=== PATIENT | female | born 1955 | race Caucasian/White ===

== ENCOUNTER 2024-12-10 12:31 | Inpatient (IN) | payer MEDICARE, MEDICAID, SELFPAY ==
[2024-12-10 12:34] VITALS: PULSE 64; RESP 18; O2SAT 97; BMI 23.8
[2024-12-10 12:42] VITALS: BP 105/75; PULSE 66; RESP 14; O2SAT 95
--- NOTE | 2024-12-10 12:44 | XR_ITS ---
Examination: Wrist, left 3 views Technique: Wrist AP, oblique, lateral 3 views Date and time of exam: December 10, 2024 1329 hours INDICATIONS: Patient fell today with injury to left wrist, left wrist pain FINDINGS: Acute comminuted fractures distal radial metaphysis, mild dorsal angulation Nondisplaced fracture ulnar styloid tip Carpal bones intact Severe osteopenia IMPRESSION: Acute comminuted fractures distal radial metaphysis
--- NOTE | 2024-12-10 12:44 | XR_ITS ---
Examination: AP chest single view Technique one AP portable supine chest single view INDICATIONS: Patient fell today with into the chest, chest pain FINDINGS: Normal heart size No pneumothorax Calcified granulomas throughout the lungs Clavicles ribs appear intact, severe osteopenia Chronic osteoporotic compressions dorsal vertebral bodies IMPRESSION: No pneumothorax pulmonary contusion or hemothorax
--- NOTE | 2024-12-10 12:44 | XR_ITS ---
Examination:Left hip AP, lateral, AP pelvis 3 views Technique: Hip AP lateral, AP pelvis, 3 views Exam date and time:November 20, 2024 1336 hours INDICATIONS: Patient fell today with injury to the left hip, left hip pain FINDINGS: Acute nondisplaced fractures left sacral wing Acute nondisplaced fractures left inferior superior pubic rami Old healed left subcapital hip fracture No acute hip fractures. IMPRESSION: Acute nondisplaced fractures lumbosacral wing. Acute nondisplaced fractures left inferior superior pubic rami.
--- NOTE | 2024-12-10 12:44 | XR_ITS ---
Examination: CT brain head without contrast. 2-D sagittal coronal reconstructions Date and time of exam:December 10, 2024 1311 hours INDICATIONS: Patient fell today with a nuclear head, head pain CTDI: vol (mGy):47.1 DLP: (mGycm):972 Technique: Multiple CT axial sections of the brain have been obtained, 5 mm slice thickness. Contrast has not been administered. 2-D sagittal, coronal reconstructions have been obtained Low dose protocols were performed. One or more of the following dose reduction techniques were used; automated exposure control, adjustment of the mA and/or KV according to patient size, use of iterative reconstruction technique. Findings: No significant ventricular enlargement. 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 No mass effect or midline shift Basal cisterns are not remarkable. Fourth ventricle is midline. Cranial vault intact. Prominent chronic microvascular white matter change Impression: Negative for acute hemorrhage, mass effect or midline shift
--- NOTE | 2024-12-10 12:44 | XR_ITS ---
Examination: CT cervical spine without contrast 2-D sagittal reconstructions 2-D coronal reconstructions 3-D reconstructions. Exam date and time:December 10, 2024 1111 hours INDICATIONS: Ground-level fall today with injury to the neck, neck pain CTDI:vol (mGy) 8.41 DLP: (mGycm) 172 Technique: Multiple 2 mm axial sections of the cervical spine have been obtained. The coronal and sagittal reconstructions have been obtained. 3-D reconstructions have been obtained. Low dose protocols were performed. One or more of the following dose reduction techniques were used; automated exposure control, adjustment of the mA and/or KV according to patient size, use of iterative reconstruction technique. Findings: Axial sections demonstrate intact base of the skull. C1 exhibit satisfactory relationship to the odontoid. No acute cervical vertebral body fracture seen. Alignment posterior spinous processes satisfactory. Impression: No acute cervical fracture.
--- NOTE | 2024-12-10 12:54 | EKG_ITS ---
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
[2024-12-10] MEDS: RINGERS LACTATED 1000 ML 1,000 ML 999 ML IV (12:57)
--- NOTE | 2024-12-10 13:12 | XR_ITS ---
Examination: CT pelvis without intravenous contrast. 2-D sagittal and coronal reconstructions. Date and time of exam:December 10, 2024 1314 hours INDICATIONS: Patient fell today with injury to the pelvis and left hip, left hip pain CTDI: vol (mGy) :9.56 DLP: (mGycm) : 2074 Technique: Multiple 3 mm axial sections of the pelvis have been obtained with the 64 slice high resolution scanner. 2-D sagittal and coronal reconstructions. Low dose protocols were performed. One or more of the following dose reduction techniques were used; automated exposure control, adjustment of the mA and/or KV according to patient size, use of iterative reconstruction technique. Findings: Severe osteopenia Acute fractures left sacral wing, axial images 57 through 64 Acetabular regions intact Acute fractures left inferior pubic ramus, image 135 and left superior pubic ramus axial image 116, without significant displacement Old healed fracture left hip subcapital No acute fractures No pelvic hematoma Urinary bladder intact IMPRESSION: Acute nondisplaced fractures left second and third sacral wings, axial image 57 Acute fractures left superior and inferior pubic rami Hips intact
[2024-12-10 13:27] LABS: Basophils # (Auto) 0.2 Thou/mm3 (0.0-0.2); Basophils % (Auto) 1 % (0-2.5); Eosinophils # (Auto) 0.4 Thou/mm3 (0.0-0.5); Eosinophils % (Auto) 2 % (0-10); Hematocrit 36.3 % (36.0-46.0); Hemoglobin 12.4 g/dL (12.0-16.0); Immature Granulocytes % (Auto) 1 % (0-0); Immature Granulocytes Auto 0.15 Thou/mm3 (0.00-0.00); Lymphocytes # (Auto) 2.5 Thou/mm3 (1.0-4.8); Lymphocytes % (Auto) 13 % (10-50); Mean Corpuscular HGB Conc 34.2 g/dl (31.0-37.0); Mean Corpuscular Hemoglobin 30.2 pg (25.0-35.0); Mean Corpuscular Volume 89 fL (80-100); Monocytes # (Auto) 1.2 Thou/mm3 (0.0-0.8); Monocytes % (Auto) 6 % (0-12); Neutrophils % (Auto) 77 % (37-80); Nucleated Red Blood Cell % 0 /100 WBC (0); Platelet Count 322 Thou/mm3 (140-440); RDW Standard Deviation 43.2 fL (36.4-46.3); White Blood Count 19.4 Thou/mm3 (3.6-11.0)
[2024-12-10 13:41] LABS: Partial Thromboplastin Time 25.4 Seconds (22.0-36.0); Prothrombin Time 10.6 Seconds (9.0-12.2)
[2024-12-10 13:43] LABS: Alanine Aminotransferase 27 U/L (10-49); Albumin, Serum 4.3 gm/dL (3.4-4.8); Albumin/Globulin Ratio 1.7 (1.2-2.2); Alkaline Phosphatase 114 U/L (46-116); Anion Gap 10 (7-16); Aspartate Amino Transferase 27 U/L (0-34); BUN/Creatinine Ratio 24 Ratio (12-20); Bilirubin,Total 0.6 mg/dL (0.3-1.2); Blood Urea Nitrogen 26 mg/dL (9-23); Calcium 10.3 mg/dL (8.3-10.6); Calcium (Corrected) 10.3 mg/dL (8.5-10.1); Carbon Dioxide 24.4 mMol/L (20.0-31.0); Chloride 107 mMol/L (98-107); Creatinine (Component) 1.1 mg/dL (0.6-1.3); Estimated Creatinine Clearance 37.7 mL/min (>60); Globulin 2.5 gm/dL (2.3-3.5); Glucose 134 mg/dL (74-106); Osmolality,Calculated 287 (275-295); Potassium 3.9 mMol/L (3.4-5.1); Sodium 141 mMol/L (136-145); Total Protein 6.8 gm/dL (5.7-8.2); eGFR 54 See Note
[2024-12-10] MEDS: MORPHINE SULF INJ 10 MG/ML VIAL 2 MG IVP ×2 (14:12→21:45)
[2024-12-10] MEDS: ONDANSETRON INJ 2 MG/ML INJ 2 ML 4 MG IVP ×2 (14:12→21:29)
--- NOTE | 2024-12-10 14:26 | EDNOTE_ITS ---
ED General RME/HPI General Chief complaint: Fall Stated complaint: FALL WITH ARM INJURY Time Seen by Provider: 12/10/24 12:44 Arrival date/time: 12/10/24 12:31 CC: Left wrist and left hip pain left buttock pain HPI patient jumped away from a snake while closing a gate, causing her to fall backwards onto her left hip. Patient denies LOC or LOC. Patient is awake alert oriented nontoxic poor and EMS reports stable vital signs and route. Related Data Home Medications ?Medication ?Instructions ?Recorded ?Confirmed amlodipine 10 mg tablet 10 mg PO HS 04/07/20 1 Allergies Allergy/AdvReac Type Severity Reaction Status Date / Time Penicillins Allergy Severe Hives Verified 06/16/21 08:57 sulfamethoxazole Allergy Severe Hives Verified 06/16/21 08:57 trimethoprim Allergy Severe Hives Verified 06/16/21 08:57 Review of Systems Review of Systems Narrative Review of Systems: GEN: No fever, no chills, no weight loss EYES: No discharge, no visual changes, no pain HEENT: No ear pain, no congestion, no sore throat PULM: No shortness of breath, no cough, no congestion CV: No chest pain, no dyspnea on exertion, no palpitations GI: No nausea, no vomiting, no diarrhea, no pain, no constipation : No frequency, no urgency, no dysuria MUSC/SKEL: + joint pain, no back pain, + hip pain SKIN: No rash PSYCH: No hallucinations, no depression HEME/LYMPH: No easy bleeding or bruising tendencies NEURO: No weakness, no headache ED Exam Narrative Physical exam: [General: Thin but not emaciated, in moderate discomfort but not in any acute distress Head normocephalic, no step-offs hematomas no depressions lacerations abrasions bleeding from the scalp. HEENT: Eyes pupils are PERRLA EOMs are intact mouth pink dry membranes uvula is midline swallow symmetrical phonation is normal nose no rhinorrhea epistaxis. No step-off in the upper or lower mandible with palpation. Within acceptable limits Neck is supple nontender no tenderness with palpation of the cervical spinous processes, no paraspinal tenderness with palpation full range of motion flexion extension rotation Chest equal chest rise nontender to palpation Respiratory: Clear to auscultation no wheezes crackles or rubs CV: Rate rhythm is regular no murmurs rubs or clicks Abdomen is flat, soft nontender no masses positive bowel sounds all 4 quadrants Back: No CVA tenderness no spinous process tenderness from cervical spine thoracic and lumbar spine Skin: 3 very small 1 to 2 mm partial-thickness abrasion sites to the lateral aspect of the left wrist. No through and through puncture wound no laceration. Otherwise skin is intact no petechiae rash induration ulceration or crepitus Extremities: Minimal range of motion of the left leg secondary to hip pain cap refill in the digits less than 2 seconds. Significant decreased range of motion in the left hand secondary to obvious deformity in the left wrist. Cap refill at these digits less than 2 seconds. Moving right leg and right upper extremity without complication full range of motion 5/5 strength. Neuro: Awake alert oriented x3 Glascow coma 15 no focal deficits cranial nerves II through XII are grossly intact.] Course Course Course Narrative: Patient has had multiple doses of pain medication to maintain her pain while lying supine in the bed. This time I feel the patient needs to be admitted for intractable pain secondary to pelvic ramus fracture coccyx fracture and wrist fracture. Patient's case discussed with Dr. Owens, who is requesting orthopedic consult for admission. As we have no orthopedic consult available, discussed the case with Dr.'s boyce said that these pelvic ramus and sacral fractures are nonoperative and the patient can be managed for pain before being discharged either home or to a SNF. The risk can be assessed on an outpatient basis with Ortho. Dr. Walsh is on tomorrow for orthopedic consult. Again we discussed this with Dr. Khoury, who agrees to accept the patient for admission for intractable hip pain. Quality Measures none Orders Category Date Time Status EKG (ED ONLY) *Do not use* NOW Care 12/10/24 12:54 Completed Saline [Insert IV] NOW Care 12/10/24 12:46 Active Splint / Immobilizer STAT Care 12/10/24 14:[address] cervical spine wo con Stat Exams 12/10/24 12:[address] head/brain wo con Stat Exams 12/10/24 12:[address] pelvis wo con Stat Exams 12/10/24 13:12 Completed EKG (ED Only) Stat Exams 12/10/24 12:54 Draft XR chest 1V Stat Exams 12/10/24 12:44 Completed XR hip LT w pelvis 2-3V Stat Exams 12/10/24 12:44 Completed XR wrist LT 2V Stat Exams 12/10/24 12:44 Completed CBC Stat Lab 12/10/24 13:06 Completed CMP [Comprehensive Metabolic Panel] Stat Lab 12/10/24 13:06 Completed PT [Prothrombin Time with INR] Stat Lab 12/10/24 13:06 Completed PTT [Partial Thromboplastin Time] Stat Lab 12/10/24 13:06 Completed Urinalysis, C/S if Indicated Stat Lab 12/10/24 15:25 Ordered Morphine Inj Med 12/10/24 12:46 Discontinued 2 mg IVP X1 ONE Morphine Inj Med 12/10/24 14:25 Discontinued 4 mg IVP X1 ONE Ondansetron Inj [Zofran Inj] Med 12/10/24 12:46 Discontinued 4 mg IVP X1 ONE Ringers Lactated 1000 ml [Lactated Ringers] 1,000 ml Med 12/10/24 12:46 Discontinued IV 999 mls/hr ceFAZolin/D5W 1 GM IVPB [Ancef Ivpb] Med 12/10/24 14:43 Discontinued 1 gm in 50 ml IV X1 oxyCODONE/APAP 5/325 [Percocet 5/325] Med 12/10/24 15:15 Discontinued 1 tab PO X1 ONE Vital Signs Vital signs: Vital Signs Pulse Rate 66 12/10/24 12:42 Respiratory Rate 14 12/10/24 12:42 Blood Pressure 105/75 12/10/24 12:42 Pulse Oximetry (%) 95 12/10/24 12:42 Oxygen Delivery Method Room Air 12/10/24 12:42 Discharge Plan Plan Patient Disposition: Other Care w/in Hosp ([facility]) Patient condition on transfer: Stable Prescriptions/Referrals Prescriptions/Med Rec: No Action amlodipine 10 mg Tablet 10 mg PO HS Referrals: Gibran Oliveira MD [Primary Care Provider] - In 1 week Problem List Clinical Impression: Closed fracture of inferior pubic ramus, Fracture of wrist, Closed fracture of superior ramus of left pubis, Closed sacral fracture, Acute hip pain Patient/Caregiver Discharge Instructions Print Language: Stateless Stand Alone Forms: Radha Award Info., Patient Portal Info Letter PA/EMPLOYMENT AND CLAIMS AIDE Supervising Physician PA/EMPLOYMENT AND CLAIMS AIDE Supervising Physician: Hernan Prieto ENP [facility] Clinical Information Provided by patient and EMS Medical Records [facility] Meds/Rx Considered, not Ordered None Labs/Rad/Tests considered, not Ordered None Chronic Illness/Social Conditions Add or document further as needed: Hypertension EKG EKG not done Lab Interpretation Labs: interpreted by me Lab(s) interpretation(s): CBC shows a 19.4 leukocytosis, no anemia thrombocytopenia Coags within acceptable limits CMP shows no significant electrolyte imbalances BUN of 24 creatinine of 1.1. No transaminitis or T. bili elevation Imaging Imaging interpretation: interpreted by me Provider imaging interpretation(s): CT of head and neck as interpreted by me read by radiology is negative for any acute finding requires emergent need intervention Chest x-ray is negative as interpreted by me for any acute finding requires emergent immune intervention. A CT of the hip pelvis shows inferior and superior ramus fracture nondisplaced along with coccyx wing fractures. Pelvic x-ray shows superior inferior ramus fracture Radiology reports / interpretation(s): At 1430 patient advised of the findings, discussed with her, her , and she is making decision as what she wants to do. The patient's fractures in the coccyx and pelvis are nonoperative. However patient has had considerable pain is required several doses of pain medication to mediate the pain while laying still. Left wrist will be immobilized in a wrist splint to follow-up on outpatient basis after the swelling goes down. Medication Administration(s) Medication Administration History Discontinued Medications Lactated Ringer's (Lactated Ringers) 1,000 mls @ 999 mls/hr IV .Q1H1M ONE Stop: 12/10/24 13:46 Last Infusion: 12/10/24 13:58 Dose: Infused Documented By: Admin: 12/10/24 12:57 Dose: 999 mls/hr Documented By: EF Cefazolin Sodium/Dextrose (Ancef Ivpb) 1 gm in 50 mls @ 100 mls/hr IV X1 ONE Stop: 12/10/24 15:12 Last Infusion: 12/10/24 15:59 Dose: Infused Documented By: Admin: 12/10/24 15:29 Dose: 100 mls/hr Documented By: EF Morphine Sulfate (Morphine Sulf Inj 10 Mg/Ml Vial) 2 mg IVP X1 ONE Stop: 12/10/24 12:47 Last Admin: 12/10/24 14:12 Dose: 2 mg Documented By: EF Morphine Sulfate (Morphine Sulf Inj 10 Mg/Ml Vial) 4 mg IVP X1 ONE Stop: 12/10/24 14:26 Last Admin: 12/10/24 15:27 Dose: 4 mg Documented By: EF Ondansetron HCl (Ondansetron Inj 2 Mg/Ml Inj 2 Ml) 4 mg IVP X1 ONE; Protocol Stop: 12/10/24 12:47 Last Admin: 12/10/24 14:12 Dose: 4 mg Documented By: EF Oxycodone/Acetaminophen (Oxycodone/Apap 5/325 Tablet) 1 tab PO X1 ONE Stop: 12/10/24 15:16
[2024-12-10 15:21] VITALS: BP 134/81; PULSE 57; RESP 15; O2SAT 95
[2024-12-10] MEDS: MORPHINE SULF INJ 10 MG/ML VIAL 4 MG IVP (15:27)
[2024-12-10] MEDS: ceFAZolin/D5W 1 GM IVPB 1 GM/50 ML BAG IV (15:29)
--- NOTE | 2024-12-10 16:23 | PC.NURSE ---
DR. DEMETRIA JORDAN, DR. IBRAHIM, & DR. FABIAN KASPER AT BEDSIDE ASSESSING PT.
[2024-12-10] MEDS: oxyCODONE/APAP 5/325 TABLET 1 TAB PO (16:25)
[2024-12-10 16:36] LABS: Collection Type, Urine Clean Catch; Squamous Epithelial Cell,Urine 0 /hpf (0-5)
[2024-12-10 16:39] VITALS: BP 130/82; PULSE 67; RESP 20; TEMP 36.6; O2SAT 96
[2024-12-10 16:48] LABS: Bilirubin,Urine Negative (Negative); Blood,Urine Negative (Negative); Clarity,Urine Clear (Clear/Hazy); Color,Urine Lt-Yellow (Lt Yel-Yel); Culture Indicated,Urine Not Indicated; Glucose, Urine Negative (Negative); Ketones,Urine Negative (Negative); Leukocyte Esterase,Urine Negative (Negative); Nitrite,Urine Negative (Negative); PH,Urine 7.5 (5.0-7.0); Protein,Urine Negative (Neg - Trace); RBC,Urine 1 /hpf (0-3); Specific Gravity,Urine 1.012 (1.001-1.035); Urobilinogen,Urine Negative mg/dL (0.0-1.0); WBC,Urine < 1 /hpf (0-5)
--- NOTE | 2024-12-10 16:50 | PD.RESHP ---
Documentation for date of: 12/10/24 HPI History of Present Illness History of present illness: Aminta Ogden is a 69-year-old female with a past medical history of osteopenia, history of left-sided hip fracture in 2019 status post ORIF, hypertension, hyperlipidemia who presents on 12/10 after mechanical ground-level fall. 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 Afterwards she experienced immediate pain but did not have her cell phone and had to walk a certain distance and even climb over a fence in order to get to her car and phone to call for help. Upon arrival to the ED, CT cervical spine negative, CT head negative, CXR negative. However, CT pelvis showed an acute nondisplaced fracture of the left 2nd and 3rd sacral wings, acute fracture of the left superior inferior pubic rami, hips intact. Wrist x-ray showed acute comminuted fracture of the distal radial metaphysis. ED provider spoke with Dr. Chaudhry regarding case and stated that fractures are nonoperable and can be managed with pain and be discharged to home with home health or SNF. Otherwise, vital signs stable. Labs showed leukocytosis of 19.4 (likely reactive secondary to fracture), normal coag panel, and mildly elevated calcium at 10.3. Patient received 1 L LR bolus, 2 mg IV morphine x 1, 4 mg IV morphine x 1, and 1 tablet of Percocet. PMHx: Osteopenia, left-sided hip fracture in 2020, hyperlipidemia, hypertension Medications: Amlodipine, aspirin, atorvastatin Allergies: penicillins, sulfa drugs SHx: smoked 5 cigarettes/day for 30 years (stopped 7 years ago), remote history of alcohol and illicit drug use PSHx: left-hip ORIF 2019 Review of Systems Review of Systems Systems Reviewed: All systems reviewed, normal except as documented Exam Vital Signs Temp Pulse Resp BP Pulse Ox O2 Del Method 97.9 F 67 20 130/82 96 Room Air 12/10/24 16:39 12/10/24 16:39 12/10/24 16:39 12/10/24 16:39 12/10/24 16:39 12/10/24 16:39 Narrative Exam General: AOx3, moderate discomfort from pain, able to speak full sentences HEENT: NC/AT, mucous membranes moist, bilateral sclera anicteric Cardiovascular: regular rate and rhythm, S1/S2 present, no murmurs appreciated Pulmonary: clear to auscultation bilaterally, no rales/rhonchi/wheezes Abdominal: soft, non-tender, non-distended, no rebound/guarding, normal bowel sounds present Musculoskeletal: LUE in sling, LLE with limited range of motion, no peripheral edema Skin: no bruising noted, warm and dry, intact, no rashes Neuro: CN II-XII intact, no focal deficits Results: Labs 12/13/24 04:31 12/13/24 04:31 Labs: Short CBC 12/10/24 Range/Units 13:06 WBC 19.4 H (3.6-11.0) Thou/mm3 Hgb 12.4 (12.0-16.0) g/dL Hct 36.3 (36.0-46.0) % Plt Count 322 (140-440) Thou/mm3 BMP 12/10/24 13:06 Sodium 141 Potassium 3.9 Chloride 107 Carbon Dioxide 24.4 BUN 26 H Creatinine 1.1 Glucose 134 H Calcium 10.3 Liver Function 12/10/24 Range/Units 13:06 Total Bilirubin 0.6 (0.3-1.2) mg/dL AST 27 (0-34) U/L ALT 27 (10-49) U/L Alkaline Phosphatase 114 (46-116) U/L Albumin 4.3 (3.4-4.8) gm/dL Quality Measures Quality Measures none Advance care planning discussed with:: patient and child Medications Home Medications and Allergies Home Medications ?Medication ?Instructions ?Recorded ?Confirmed ?Type amlodipine 10 mg tablet 10 mg PO HS 04/07/20 12/10/24 History aspirin 81 mg chewable tablet 81 mg PO DAILY 12/10/24 12/10/24 History atorvastatin 40 mg tablet 40 mg PO .COMPLEX 12/10/24 12/10/24 History Allergies Allergy/AdvReac Type Severity Reaction Status Date / Time Penicillins Allergy Severe Hives Verified 06/16/21 08:57 sulfamethoxazole Allergy Severe Hives Verified 06/16/21 08:57 trimethoprim Allergy Severe Hives Verified 06/16/21 08:57 Visit Medications Acetaminophen (Acetaminophen 325 Mg Tablet) 650 mg PO Q6H PRN PRN Reason: PAIN OR FEVER > 100.4 Stop: 01/09/25 16:37 Hydrocodone Bitart/Acetaminophen (Hydrocodone/Apap 5/325 Tablet) 1 tab PO Q6HR PRN PRN Reason: PAIN SCALE 4-6 (Moderate Stop: 12/15/24 16:37 Amlodipine Besylate (Amlodipine Besylate 5 Mg Tablet) 10 mg PO HS CLIFF Stop: 01/10/25 08:59 Aspirin (Aspirin 81 Mg Chew) 81 mg PO DAILY CLIFF Stop: 01/10/25 08:59 Atorvastatin Calcium (Atorvastatin Calcium 20 Mg Tablet) 40 mg PO HS CLIFF Stop: 01/09/25 20:59 Enoxaparin Sodium (Enoxaparin Sod Inj 40 Mg/0.4 Ml Syringe) 40 mg SC QDAY CLIFF Stop: 12/25/24 08:59 Hydromorphone HCl (Hydromorphone Inj 2 Mg/Ml Vial) 0.5 mg IVP Q6H PRN PRN Reason: PAIN SCALE 7-10 (Severe Stop: 12/15/24 16:37 Ondansetron HCl (Ondansetron Inj 2 Mg/Ml Inj 2 Ml) 4 mg IVP Q6H PRN; Protocol PRN Reason: NAUSEA OR VOMITING Stop: 01/09/25 16:37 Discontinued Medications Lactated Ringer's (Lactated Ringers) 1,000 mls @ 999 mls/hr IV .Q1H1M ONE Stop: 12/10/24 13:46 Last Infusion: 12/10/24 13:58 Dose: Infused Cefazolin Sodium/Dextrose (Ancef Ivpb) 1 gm in 50 mls @ 100 mls/hr IV X1 ONE Stop: 12/10/24 15:12 Last Infusion: 12/10/24 15:59 Dose: Infused Morphine Sulfate (Morphine Sulf Inj 10 Mg/Ml Vial) 2 mg IVP X1 ONE Stop: 12/10/24 12:47 Last Admin: 12/10/24 14:12 Dose: 2 mg Morphine Sulfate (Morphine Sulf Inj 10 Mg/Ml Vial) 4 mg IVP X1 ONE Stop: 12/10/24 14:26 Last Admin: 12/10/24 15:27 Dose: 4 mg Ondansetron HCl (Ondansetron Inj 2 Mg/Ml Inj 2 Ml) 4 mg IVP X1 ONE; Protocol Stop: 12/10/24 12:47 Last Admin: 12/10/24 14:12 Dose: 4 mg Oxycodone/Acetaminophen (Oxycodone/Apap 5/325 Tablet) 1 tab PO X1 ONE Stop: 12/10/24 15:16 Last Admin: 12/10/24 16:25 Dose: 1 tab Assessment & Plan Plan Aminta Ogden is a 69-year-old female with a past medical history of osteopenia, history of left-sided hip fracture in 2020 status post ORIF, hypertension, hyperlipidemia who is admitted for management of acute left hip fracture. #Acute left hip-fracture #Acute left wrist fractrue #History of severe osteopenia #History of left-sided hip fracture status post ORIF in 2020 Presents with mechanical ground-level fall and denies LOC with CT head and neck negative. CT pelvis showed an acute nondisplaced fracture of the left 2nd and 3rd sacral wings, acute fracture of the left superior inferior pubic rami, hips intact. Wrist x-ray showed acute comminuted fracture of the distal radial metaphysis. ED provider spoke with Dr. Chaudhry regarding case and stated that fractures are nonoperable and can be managed with pain and be discharged to home with home health or SNF. ? Pain management: [place], Dilaudid (patient endorsed nausea with morphine) ? PT evaluation #Hypertension ? Amlodipine 10 mg nightly #Hyperlipidemia ? Atorvastatin 40 mg p.o. at bedtime Hospital management: Disposition: pending PT evaluation for SNF vs home health with PT Diet: regular Lines: PIV DVT prophylaxis: enoxaparin 40 mg SC daily CODE STATUS: full code ----- Plan discussed with attending physician Dr. Graciela Johnston MD PGY-1 Internal Medicine Attending Provider Attestation/Addendum I attest that I was physically present for the evaluation, physical examination, lab and imaging review of the patient with the residents. I discussed the case with the residents and agree with the findings and plans of care as documented above. After examination of the patient and review of the clinical data I feel that this patient needs admission to the hospital for further treatment/evaluation. Trip Owens MD
[2024-12-10 19:20] VITALS: BMI 25.4
[2024-12-10 20:00] VITALS: BP 137/78; PULSE 68; RESP 17; TEMP 36.4; O2SAT 97
[2024-12-10] MEDS: ATORVASTATIN CALCIUM 20 MG TABLET 40 MG PO (21:06)
[2024-12-11] VITALS (7 sets, daily range): BP systolic 100–144; BP diastolic 68–86; PULSE 66–96; RESP 18–19; TEMP 36.1–36.5; O2SAT 93–96; BMI 12.0
[2024-12-11] MEDS: MORPHINE SULF INJ 10 MG/ML VIAL 2 MG IVP (05:18)
[2024-12-11 06:33] LABS: Anion Gap 9 (7-16); BUN/Creatinine Ratio 19 Ratio (12-20); Blood Urea Nitrogen 19 mg/dL (9-23); Calcium 9.9 mg/dL (8.3-10.6); Carbon Dioxide 27.9 mMol/L (20.0-31.0); Chloride 102 mMol/L (98-107); Estimated Creatinine Clearance 42.7 mL/min (>60); Glucose 107 mg/dL (74-106); Magnesium 2.1 mg/dL (1.6-2.6); Osmolality,Calculated 279 (275-295); Phosphorous 3.3 mg/dL (2.4-5.1); Potassium 4.1 mMol/L (3.4-5.1); Sodium 139 mMol/L (136-145); Thyroid Stimulating Hormone 3.11 uIU/mL (0.55-4.78); eGFR > 60 See Note
[2024-12-11 06:48] LABS: Cardiac Risk Estimate 2.8 RATIO (3.7-5.6); Cholesterol 160 mg/dL (132-200); HDL Cholesterol 58 mg/dL (40-60); LDL Cholesterol,Calculated 79 mg/dL (0-130); Triglycerides 117 mg/dL (30-150)
[2024-12-11 07:49] LABS: Basophils # (Auto) 0.1 Thou/mm3 (0.0-0.2); Basophils % (Auto) 1 % (0-2.5); Eosinophils # (Auto) 0.3 Thou/mm3 (0.0-0.5); Eosinophils % (Auto) 4 % (0-10); Hematocrit 35.9 % (36.0-46.0); Hemoglobin 12.4 g/dL (12.0-16.0); Immature Granulocytes % (Auto) 0 % (0-0); Immature Granulocytes Auto 0.03 Thou/mm3 (0.00-0.00); Lymphocytes # (Auto) 1.8 Thou/mm3 (1.0-4.8); Lymphocytes % (Auto) 21 % (10-50); Mean Corpuscular HGB Conc 34.5 g/dl (31.0-37.0); Mean Corpuscular Hemoglobin 30.7 pg (25.0-35.0); Mean Corpuscular Volume 89 fL (80-100); Monocytes # (Auto) 0.8 Thou/mm3 (0.0-0.8); Monocytes % (Auto) 10 % (0-12); Neutrophils # (Auto) 5.4 Thou/mm3 (1.8-7.7); Neutrophils % (Auto) 64 % (37-80); Nucleated Red Blood Cell % 0 /100 WBC (0); Platelet Count 263 Thou/mm3 (140-440); RDW Standard Deviation 43.3 fL (36.4-46.3); Red Blood Count 4.04 Miln/mm3 (4.00-5.20); White Blood Count 8.5 Thou/mm3 (3.6-11.0)
[2024-12-11] MEDS: ENOXAPARIN SOD INJ 40 MG/0.4 ML SYRINGE SC (08:48)
[2024-12-11] MEDS: ASPIRIN 81 MG CHEW PO (08:50)
[2024-12-11] MEDS: ONDANSETRON INJ 2 MG/ML INJ 2 ML 4 MG IVP ×2 (08:50→15:15)
--- NOTE | 2024-12-11 09:06 | ESPR_ITS ---
<Statement entered by Gaby Tipton MD - 12/11/24 15:18> Overnight, no acute events reported. Patient seen and examined at bedside. Patient continues to have pain both her hip and wrist. Will continue with NSAIDs as patient's pain is alleviated. Orthopedics was consulted and recommended to continue weightbearing, and continue PT as tolerated. Patient will likely need outpatient hand surgery for distal radius fracture. Otherwise all labs unremarkable. Patient will likely need home with home health as patient is strongly against SNF at this time. I discussed with and supervised the intern architect physician who took care of this patient. I personally saw and examined the patient and discussed the assessment and plan with the entire medicine team, including my attending Dr. Cunningham, I agree with most of the assessment and plan as documented below Gaby Tipton M.D. PGY-2 Disclaimer: Despite multiple revisions, due to the dictation software being used, the document bellow may not be free of grammatical errors including phonetic/typographic errors. However, this does not deter from our commitment to providing health care in the patient's best interest in mind. Documentation for date of: 12/11/24 Subjective Subjective Interval history: No acute overnight events. Seen and examined at bedside and patient continues to endorse significant pain in both her wrist and hip with associated nausea. Patient states that both Dilaudid and morphine caused her to feel ill and has had ketorolac in the past that alleviated her symptoms. Thus, will start ketorolac for her pain and morphine for breakthrough with Zofran and PRN to help alleviate symptoms. Spoke to Ortho, Dr. Walsh, and at this time can continue weightbearing as tolerated in lower extremities and can continue treatment nonoperatively will trial ambulation and platform walker. For distal radius fracture, will likely need surgery but can do this as outpatient. Otherwise, vital signs stable, CBC unremarkable, CHEM panel unremarkable. Exam Vital Signs Temp Pulse Resp BP Pulse Ox O2 Del Method 97.6 F 77 18 126/73 93 L Room Air 12/11/24 04:00 12/11/24 04:00 12/11/24 04:00 12/11/24 04:00 12/11/24 04:00 12/11/24 04:00 Narrative Exam General: AOx3, moderate discomfort from pain, able to speak full sentences HEENT: NC/AT, mucous membranes moist, bilateral sclera anicteric Cardiovascular: regular rate and rhythm, S1/S2 present, no murmurs appreciated Pulmonary: clear to auscultation bilaterally, no rales/rhonchi/wheezes Abdominal: soft, non-tender, non-distended, no rebound/guarding, normal bowel sounds present Musculoskeletal: LUE in sling, LLE with limited range of motion, no peripheral edema Skin: no bruising noted, warm and dry, intact, no rashes Neuro: CN II-XII intact, no focal deficits Objective Labs 12/12/24 05:22 12/12/24 05:22 Labs: Laboratory Results - last 24 hr 12/10/24 12/10/24 12/11/24 13:06 16:13 04:51 WBC 19.4 H 8.5 D RBC 4.10 4.04 Hgb 12.4 12.4 Hct 36.3 35.9 L MCV 89 89 MCH 30.2 30.7 MCHC 34.2 34.5 RDW Std Deviation 43.2 43.3 Plt Count 322 263 D Neut % (Auto) 77 64 Lymph % (Auto) 13 21 Conway % (Auto) 6 10 Eos % (Auto) 2 4 Baso % (Auto) 1 1 Neut # (Auto) 15.0 H 5.4 Lymph # (Auto) 2.5 1.8 Conway # (Auto) 1.2 H 0.8 Eos # (Auto) 0.4 0.3 Baso # (Auto) 0.2 0.1 Immature Gran # (Auto) 0.15 H 0.03 H Absolute Nucleated RBC 0.00 0.00 Immature Gran % 1 H 0 Nucleated RBC % 0 0 PT 10.6 INR 1.0 APTT 25.4 Sodium 141 139 Potassium 3.9 4.1 Chloride 107 102 Carbon Dioxide 24.4 27.9 Anion Gap 10 9 BUN 26 H 19 Creatinine 1.1 1.0 Estim Creat Clear Calc 37.7 L 42.7 L eGFR 54 L > 60 BUN/Creatinine Ratio 24 H 19 Glucose 134 H 107 H Calculated Osmolality 287 279 Calcium 10.3 9.9 Corrected Calcium 10.3 H Phosphorus 3.3 Magnesium 2.1 Total Bilirubin 0.6 AST 27 ALT 27 Alkaline Phosphatase 114 Total Protein 6.8 Albumin 4.3 Globulin 2.5 Albumin/Globulin Ratio 1.7 Triglycerides 117 Cholesterol 160 LDL Cholesterol, Calc 79 HDL Cholesterol 58 Cholesterol/HDL Ratio 2.8 L TSH 3.11 Ur Collection Type Clean Catch Urine Color Lt-Yellow Urine Clarity Clear Urine pH 7.5 H Ur Specific Ramona 1.012 Urine Protein Negative Urine Glucose (UA) Negative Urine Ketones Negative Urine Blood Negative Urine Nitrite Negative Urine Bilirubin Negative Urine Urobilinogen (Auto) Negative Ur Leukocyte Esterase Negative Urine RBC 1 Urine WBC < 1 Ur Squamous Epith Cells 0 Urine Bacteria None Ur Culture Indicated? Not Indicated Quality Measures Quality Measures none Advance care planning discussed with:: patient and child Assessment & Plan Assessment Current Active Medications: Generic Name Dose Route Start Last Admin Trade Name Freq PRN Reason Stop Dose Admin Acetaminophen 650 mg 12/10/24 16:38 Acetaminophen 325 Mg Tablet PO 01/09/25 16:37 Q6H PRN PAIN OR FEVER > 100.4 Hydrocodone Bitart/Acetaminophen 1 tab 12/10/24 16:38 Hydrocodone/Apap 5/325 Tablet PO 12/15/24 16:37 Q6HR PRN PAIN SCALE 4-6 (Moderate Amlodipine Besylate 10 mg 12/11/24 09:00 12/11/24 08:50 Amlodipine Besylate 5 Mg Tablet PO 01/10/25 08:59 Not Given HS CLIFF Aspirin 81 mg 12/11/24 09:00 12/11/24 08:50 Aspirin 81 Mg Chew PO 01/10/25 08:59 81 mg DAILY CLIFF Administration Atorvastatin Calcium 40 mg 12/10/24 21:00 12/10/24 21:06 Atorvastatin Calcium 20 Mg Tablet PO 01/09/25 20:59 40 mg HS CLIFF Administration Enoxaparin Sodium 40 mg 12/11/24 09:00 12/11/24 08:48 Enoxaparin Sod Inj 40 Mg/0.4 Ml Syringe SC 12/25/24 08:59 40 mg QDAY CLIFF Administration Hydromorphone HCl 0.5 mg 12/10/24 16:38 Hydromorphone Inj 2 Mg/Ml Vial IVP 12/15/24 16:37 Q6H PRN PAIN SCALE 7-10 (Severe Morphine Sulfate 2 mg 12/10/24 21:28 12/11/24 05:18 Morphine Sulf Inj 10 Mg/Ml Vial IVP 12/15/24 21:27 2 mg Q4HR PRN Administration Pain 6-10 Ondansetron HCl 4 mg 12/10/24 16:38 05/27/25 08:50 Ondansetron Inj 2 Mg/Ml Inj 2 Ml IVP 01/09/25 16:37 4 mg Q6H PRN Administration NAUSEA OR VOMITING Protocol Plan Aminta Ogden is a 69-year-old female with a past medical history of osteopenia, history of left-sided hip fracture in 2020 status post ORIF, hypertension, hyperlipidemia who is admitted for management of acute left hip fracture. #Acute left superior pubic rami fracture #Acute left wrist fracture #History of severe osteopenia #History of left-sided hip fracture status post ORIF in 2020 Presents with mechanical ground-level fall and denies LOC with CT head and neck negative. CT pelvis showed an acute nondisplaced fracture of the left 2nd and 3rd sacral wings, acute fracture of the left superior inferior pubic rami, hips intact. Wrist x-ray showed acute comminuted fracture of the distal radial metaphysis. ED provider spoke with Dr. Chaudhry regarding case and stated that fractures are nonoperable and can be managed with pain and be discharged to home with home health or SNF. ? Orthopedics consulted, appreciate recommendations ? For hip fractures, can be treated nonoperatively, weightbearing as tolerated; trial of ambulation and will need platform walker given distal radius fracture ? For distal radius fracture, will likely need surgery -> will need platform walker, nonweightbearing, outpatient follow-up ? PT evaluation ? Pain management: ketorolac, morphine for breakthrough pain #Nausea ? Zofran ? Scopolamine patch x1 #Hypertension ? Amlodipine 10 mg nightly #Hyperlipidemia ? Atorvastatin 40 mg p.o. at bedtime Hospital management: Disposition: pending PT evaluation for SNF vs home health with PT Diet: regular Lines: PIV DVT prophylaxis: enoxaparin 40 mg SC daily CODE STATUS: full code ----- Plan discussed with attending physician Dr. Cunningham and senior resident physician Dr. Saeed Johnston MD PGY-1 Internal Medicine Attending Provider Attestation/Addendum 69-year-old female with hyperlipidemia and osteopenia with subsequent history of left hip ORIF back in 2019 who presented status post ground-level fall. In the ER, patient underwent extensive workup including CT pelvis which noted acute nondisplaced fracture of the left 2nd and 3rd sacral wing, acute fracture of the left superior inferior rami and left distal radial fracture. Patient subsequently admitted orthopedic service was consulted. Patient was evaluated by orthopedic team did not recommend any intervention for left sacral and ramus fractures. As for distal radial fracture, recommended outpatient referral to a hand specialist.I reviewed above note and agree with findings and plans. Plan was to discharge the patient however, continues to require IV opiates and physical therapy. Plan to initiate aggressive oral opiate regiment and prepare the patient for discharge in the next 24-48 hours. I have also personally examined the patient with medicine team and went over assessment and plan with medical team including intern architect and resident physician.
--- NOTE | 2024-12-11 10:04 | PC.SS ---
Patient Aminta Ogden is a 69 Year old female admitted for Hip Fracture. SS met with patient at bedside to discuss discharge plan and verify demographic information. Patient reports she lives at home alone in the same property as her sister. prior to admission patient did not utilize any source of DME to assist with ambulation. Patient is able to complete all ADL's independently. Surrogate decision maker is her daughter, Valeria Koo, [phone]. Choice of pharmacy is [facility]. PCP is Gibran Oliveira. At time of discharge patient will return back home with HH. Preferred HH agency [facility] Family will provide transportation. Discharge plan: Home with HH VS SNF, patient refusing SNF Next of kin, Daughter, Valeria Koo [phone] PCP: Gibran Oliveira
[2024-12-11] MEDS: KETOROLAC INJ 30 MG/ML VIAL 15 MG IVP (11:15)
--- NOTE | 2024-12-11 11:36 | PC.SS ---
SS follow up note; Patient is pending PT evaluation. Patients wants to discharge home with HH, Choice of HH is [facility]. If [facility] is not able to accept patient's insurance, patient is open to any HH agency.
[2024-12-11] MEDS: SCOPOLAMINE 1 MG TDSY TOP (11:42)
--- NOTE | 2024-12-11 13:12 | PD.ORTHCON ---
HPI Consult details Reason for consultation narrative: Left hip pain and wrist pain History of present illness: Patient is a 69-year-old female with a left pubic ramus fracture as well as a left distal radius fracture after ground-level fall. She had difficulty bearing weight since the fall. She did ambulate and get to the car. She reports significant pain and was splinted in the emergency room. She denies any numbness or tingling Meds Home Medications and Allergies Home Medications ?Medication ?Instructions ?Recorded ?Confirmed ?Type amlodipine 10 mg tablet 10 mg PO HS 04/07/20 12/10/24 History aspirin 81 mg chewable tablet 81 mg PO DAILY 12/10/24 12/10/24 History atorvastatin 40 mg tablet 40 mg PO .COMPLEX 12/10/24 12/10/24 History Allergies Allergy/AdvReac Type Severity Reaction Status Date / Time Penicillins Allergy Severe Hives Verified 06/16/21 08:57 sulfamethoxazole Allergy Severe Hives Verified 06/16/21 08:57 trimethoprim Allergy Severe Hives Verified 06/16/21 08:57 Exam Vital Signs Temp Pulse Resp BP Pulse Ox O2 Del Method 97.7 F 66 18 144/86 H 96 Room Air 12/11/24 12:00 12/11/24 12:00 12/11/24 12:00 12/11/24 12:00 12/11/24 12:00 12/11/24 12:00 Additional findings Additional findings: Patient is in no acute distress and is cooperative with the examination today. Patient has a normal mood and affect. Breathing is nonlabored. In no respiratory distress. Bilateral extremities were evaluated and demonstrates sensation intact to light touch. Palpable pedal pulses are present. No significant edema is present. Left hip demonstrate no pain with logroll. Left wrist is in a splint. She is able to have AIN, PIN, radial, and ulnar nerve distributions intact. X-rays demonstrate a comminuted distal radius fracture as well as superior and inferior pubic ramus fractures that are nondisplaced on CT As well as a sacral fracture Results - Ortho Labs 12/11/24 04:51 12/11/24 04:51 Labs: Short CBC 12/10/24 12/11/24 Range/Units 13:06 04:51 WBC 19.4 H 8.5 D (3.6-11.0) Thou/mm3 Hgb 12.4 12.4 (12.0-16.0) g/dL Hct 36.3 35.9 L (36.0-46.0) % Plt Count 322 263 D (140-440) Thou/mm3 BMP 12/10/24 12/11/24 13:06 04:51 Sodium 141 139 Potassium 3.9 4.1 Chloride 107 102 Carbon Dioxide 24.4 27.9 BUN 26 H 19 Creatinine 1.1 1.0 Glucose 134 H 107 H Calcium 10.3 9.9 Liver Function 12/10/24 Range/Units 13:06 Total Bilirubin 0.6 (0.3-1.2) mg/dL AST 27 (0-34) U/L ALT 27 (10-49) U/L Alkaline Phosphatase 114 (46-116) U/L Albumin 4.3 (3.4-4.8) gm/dL Urine 12/10/24 Range/Units 16:13 Urine Color Lt-Yellow (Lt Yel-Yel) Urine Clarity Clear (Clear/Hazy) Urine pH 7.5 H (5.0-7.0) Ur Specific [place] 1.012 (1.001-1.035) Urine Protein Negative (Neg - Trace) Urine Glucose (UA) Negative (Negative) Assessment & Plan Problem List (1) Closed sacral fracture: Status: Acute Assessment and plan: Patient is a 69-year-old female with a left sacral and ramus fractures. She can be weightbearing as tolerated in the lower extremities as this can probably be treated nonoperatively. We will try a trial of ambulation. She will need a platform walker given her distal radius fracture. For her distal radius fracture, given that it is comminuted, I do think that this will likely need surgery. I would recommend a hand surgeon and I talked with the family members and they would like to go to [facility] in [place] if possible. I think this is reasonable. She will need to work with physical therapy and will be weightbearing as tolerated in the lowers and nonweightbearing on the left upper extremity. She will need a platform walker. - Outpatient follow-up for her distal radius fracture - Weightbearing as tolerated for the pelvis fracture (2) Closed fracture of superior ramus of left pubis: Status: Acute (3) Fracture of wrist: Status: Acute
--- NOTE | 2024-12-11 15:55 | PC.SS ---
SS follow up note; SS was contacted by Danyell from PT in regards to patient needing Plat Form Walker. SS faxed referral to [facility] at [phone].
[2024-12-11] MEDS: amLODIPine BESYLATE 5 MG TABLET 10 MG PO (20:20)
[2024-12-11] MEDS: ATORVASTATIN CALCIUM 20 MG TABLET 40 MG PO (20:20)
[2024-12-11] MEDS: KETOROLAC 10 MG TABLET PO (23:51)
[2024-12-12] VITALS (7 sets, daily range): BP systolic 108–127; BP diastolic 59–75; PULSE 65–80; RESP 16–18; TEMP 36.2–36.4; O2SAT 92–95; BMI 11.0
[2024-12-12 06:00] LABS: Basophils # (Auto) 0.1 Thou/mm3 (0.0-0.2); Basophils % (Auto) 1 % (0-2.5); Eosinophils # (Auto) 0.6 Thou/mm3 (0.0-0.5); Eosinophils % (Auto) 6 % (0-10); Hemoglobin 12.9 g/dL (12.0-16.0); Immature Granulocytes % (Auto) 0 % (0-0); Immature Granulocytes Auto 0.04 Thou/mm3 (0.00-0.00); Lymphocytes # (Auto) 1.6 Thou/mm3 (1.0-4.8); Lymphocytes % (Auto) 18 % (10-50); Mean Corpuscular HGB Conc 33.9 g/dl (31.0-37.0); Mean Corpuscular Hemoglobin 30.7 pg (25.0-35.0); Mean Corpuscular Volume 91 fL (80-100); Monocytes # (Auto) 0.8 Thou/mm3 (0.0-0.8); Monocytes % (Auto) 9 % (0-12); Neutrophils # (Auto) 5.9 Thou/mm3 (1.8-7.7); Neutrophils % (Auto) 66 % (37-80); Nucleated Red Blood Cell % 0 /100 WBC (0); Platelet Count 225 Thou/mm3 (140-440); RDW Standard Deviation 43.4 fL (36.4-46.3)
[2024-12-12 06:19] LABS: Anion Gap 10 (7-16); BUN/Creatinine Ratio 16 Ratio (12-20); Blood Urea Nitrogen 21 mg/dL (9-23); Carbon Dioxide 26.4 mMol/L (20.0-31.0); Chloride 101 mMol/L (98-107); Creatinine (Component) 1.3 mg/dL (0.6-1.3); Estimated Creatinine Clearance 32.8 mL/min (>60); Glucose 94 mg/dL (74-106); Osmolality,Calculated 276 (275-295); Potassium 4.1 mMol/L (3.4-5.1); Sodium 137 mMol/L (136-145); eGFR 45 See Note
[2024-12-12] MEDS: KETOROLAC 10 MG TABLET PO ×2 (06:25→15:37)
[2024-12-12] MEDS: RINGERS LACTATED 1000 ML 500 ML 100 ML IV (08:33)
[2024-12-12] MEDS: ENOXAPARIN SOD INJ 40 MG/0.4 ML SYRINGE SC (08:34)
[2024-12-12] MEDS: ASPIRIN 81 MG CHEW PO (08:34)
--- NOTE | 2024-12-12 10:35 | PD.RESDS ---
Planned Discharge Date 12/12/24 DS: Providers Provider Date of admission: 12/10/24 16:38 Primary care physician: Gibran Oliveira MD Admitting Provider: Trip Owens MD Attending Provider on Admission: Adan Cunningham MD Consults: 12/10/24 16:45 Referral Physical Therapy Routine Comment: Left hip fracture, left wrist fracture Physician Instructions: 12/11/24 09:11 Consult to Orthopedic Routine Comment: Consulting Provider: Juan Walsh Instructions: Acute nondisplaced fracture of left 2nd and 3rd sacral wings, acute fracture of left superior and inferior pubic rami, hips intact Acute comminuted fracture of the distal radial metaphysis Attending Provider on DC: Thomas Johnston MD Discharging Provider: Thomas Johnston MD Hospital Course Hospital Course Hospital course: Aminta Ogden is a 69-year-old female with a past medical history of osteopenia, history of left-sided hip fracture in 2019 status post ORIF, hypertension, hyperlipidemia who presents on 12/10 after mechanical ground-level fall. 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 Afterwards she experienced immediate pain but did not have her cell phone and had to walk a certain distance and even climb over a fence in order to get to her car and phone to call for help. Upon arrival to the ED, CT cervical spine negative, CT head negative, CXR negative. However, CT pelvis showed an acute nondisplaced fracture of the left 2nd and 3rd sacral wings, acute fracture of the left superior inferior pubic rami, hips intact. Wrist x-ray showed acute comminuted fracture of the distal radial metaphysis. ED provider spoke with Dr. Chaudhry regarding case and stated that fractures are nonoperable and can be managed with pain and be discharged to home with home health or SNF. Otherwise, vital signs stable. Labs showed leukocytosis of 19.4 (likely reactive secondary to fracture), normal coag panel, and mildly elevated calcium at 10.3. Patient received 1 L LR bolus, 2 mg IV morphine x 1, 4 mg IV morphine x 1, and 1 tablet of Percocet. PMHx: Osteopenia, left-sided hip fracture in 2020, hyperlipidemia, hypertension Medications: Amlodipine, aspirin, atorvastatin Allergies: penicillins, sulfa drugs SHx: smoked 5 cigarettes/day for 30 years (stopped 7 years ago), remote history of alcohol and illicit drug use PSHx: left-hip ORIF 2019 Time Spent with Patient Time attestation: Total time spent providing and/or coordinating discharge services: Home Health Home Health Referral Orders: 12/11/24 10:55 Home Health Referral Routine Reason For Exam: PT Home-Bound The patient must either because of illness or injury, need the aid of supportive devices such as crutches, canes, wheelchairs, and walkers; the use of special transportation; or the assistance of another person in order to leave their place of residence; OR have a condition such that leaving his or her home is medically contraindicated. In addition, the patient also meets the following criteria: patient is normally unable to leave the home and leaving home requires considerable taxing effort. Addendum to Home Health Certification Practitioner's Certification: I certify that the patient has been under my care in the hospital and the care of attending physician (see below). We had a eotk-wl-gqho encounter on (see date below). My clinical findings indicate that the patient is home bound per the above criteria and the Home Health Services noted in these orders are medically necessary. The primary reason for the akiv-cl-ecuv encounter is related to the fact that the patient requires home health services. Date Certifying Yaqs-ov-Mais Physician Encounter: 12/10/24 Physician's Name who will Assume Oversight for Services: Gibran Oliveira Physician's Phone No.who will Assume Oversight for Service: SLOT FLOOR PERSON - Community Resources: No PT to Evaluate: Yes PT to evaluate and provide a treatmnet plan to increase patient's mobility and strength. Wound Care: No IV Therapy: No RN Safety Evaluation: Yes RN to evaluate and create a plan of care that will produce positive outcomes. Palliative Treatment: No Palliative treatment and evaluate the need for hospice. Home Health Aide - Personal Care: No Home Health Aide to assist with any ADL's. 12/12/24 09:55 Home Health Referral Routine Reason For Exam: PT Home-Bound The patient must either because of illness or injury, need the aid of supportive devices such as crutches, canes, wheelchairs, and walkers; the use of special transportation; or the assistance of another person in order to leave their place of residence; OR have a condition such that leaving his or her home is medically contraindicated. In addition, the patient also meets the following criteria: patient is normally unable to leave the home and leaving home requires considerable taxing effort. Addendum to Home Health Certification Practitioner's Certification: I certify that the patient has been under my care in the hospital and the care of attending physician (see below). We had a hrxl-wi-mfve encounter on (see date below). My clinical findings indicate that the patient is home bound per the above criteria and the Home Health Services noted in these orders are medically necessary. The primary reason for the xqxe-bm-ivhh encounter is related to the fact that the patient requires home health services. Date Certifying Bquu-gd-Nnox Physician Encounter: 12/10/24 Physician's Name who will Assume Oversight for Services: Gibran Oliveira Physician's Phone No.who will Assume Oversight for Service: SLOT FLOOR PERSON - Community Resources: No PT to Evaluate: Yes PT to evaluate and provide a treatmnet plan to increase patient's mobility and strength. Wound Care: No IV Therapy: No RN Safety Evaluation: Yes RN to evaluate and create a plan of care that will produce positive outcomes. Palliative Treatment: No Palliative treatment and evaluate the need for hospice. Home Health Aide - Personal Care: No Home Health Aide to assist with any ADL's. Exam Vital Signs Temp Pulse Resp BP Pulse Ox O2 Del Method 97.6 F 67 18 112/59 L 92 L Room Air 12/12/24 08:00 12/12/24 08:00 12/12/24 08:00 12/12/24 08:00 12/12/24 08:00 12/12/24 08:00 Discharge Plan Plan Patient Disposition: Home w/HOME HEALTH Patient condition on transfer: Stable Care Plan Goals: ? Continue taking all other home medications as prescribed ? Take tramadol and Tylenol as needed for pain ? Follow-up with PCP within 1-2 weeks of discharge ? Follow-up with [facility] in [place] for your wrist fracture ? Return to ED if symptoms worsen or recur Prescriptions/Referrals Prescriptions/Med Rec: New tramadol 50 mg tablet 50 mg PO Q8H PRN (Reason: pain) Qty: 10 0RF acetaminophen 500 mg capsule 500 mg PO Q6H PRN (Reason: pain) Qty: 10 0RF Continued amlodipine 10 mg Tablet 10 mg PO HS atorvastatin 40 mg tablet 40 mg PO .COMPLEX Patient Comments: TAKE ONE TABLET BY MOUTH AT BEDTIME FOR CHOLESTEROL Rx Instructions: 40 mg orally; aspirin 81 mg tablet,chewable 81 mg PO DAILY Patient Comments: CHEW ONE TABLET BY MOUTH EVERY DAY FOR THE HEART Referrals: Gibran Oliveira MD [Primary Care Provider] - Patient/Caregiver Discharge Instructions Print Language: Maldivian Stand Alone Forms: Radha Award Info., Patient Portal Info Letter Discharge Order Discharge Orders: Discharge (Routine); Ordered 12/12/24 Ordered By: Thomas Johnston
--- NOTE | 2024-12-12 10:46 | PC.NURSE ---
Called Dr. Eubanks to notify him pt needs a referral to a specialist for left wrist sx. [facility] in [place] does not take her insurance and she will need referral to specialist who takes her insurance. Per Dr. Eubanks, he will talk to his team members.
--- NOTE | 2024-12-12 14:40 | PC.SS ---
Addendum entered by KARISHMA Alicea 12/12/24 16:51: SS update: per resident Dr. Raimundo Johnston the patient is set up with outpatient follow up appointment on 12/14/24 for concerns regarding her wrist, additionally d/c was cancelled to try a new pain medication. Anticipated d/c for tomorrow. Addendum entered by KARISHMA Alicea 12/12/24 14:43: SS update: notified resident Dr. Garcia that the patient and family had additional questions regarding outpatient services. She informed they will come by to speak with the patient to address questions/concerns. Original Note: Rounding note: patient ready for d/c home with home health.
[2024-12-12] MEDS: ATORVASTATIN CALCIUM 20 MG TABLET 40 MG PO (20:33)
[2024-12-12] MEDS: traMADol HCL 50 MG TABLET PO (20:34)
[2024-12-12] MEDS: amLODIPine BESYLATE 5 MG TABLET 10 MG PO (20:37)
--- NOTE | 2024-12-12 20:41 | ESPR_ITS ---
<Statement entered by Adan Cunningham MD - 12/17/24 14:42> I reviewed above note and agree with findings and plans. I have also personally examined the patient with medicine team and went over assessment and plan with medical team including strategy intern and resident physician. Documentation for date of: 12/12/24 Subjective Subjective Interval history: No acute overnight events. Seen and examined at bedside and patient states that ketorolac has helped with her pain the best thus far. Otherwise, she was able to work with physical therapy again today. Spoke to daughter over the phone regarding outpatient follow-up and currently has plans to see Dr. Araujo on Tuesday for wrist. Called Dr. Araujo's office personally verified that they will be able to take patient's insurance. Explained current plans with patient, states that she understands and is in agreement. Will do a trial of tramadol to see how patient tolerates versus ketorolac as we will plan to discharge tomorrow. Exam Vital Signs Temp Pulse Resp BP Pulse Ox O2 Del Method 97.4 F 79 16 119/71 94 L Room Air 12/12/24 20:00 12/12/24 20:37 12/12/24 20:00 12/12/24 20:37 12/12/24 20:00 12/12/24 20:00 Narrative Exam General: AOx3, moderate discomfort from pain, able to speak full sentences HEENT: NC/AT, mucous membranes moist, bilateral sclera anicteric Cardiovascular: regular rate and rhythm, S1/S2 present, no murmurs appreciated Pulmonary: clear to auscultation bilaterally, no rales/rhonchi/wheezes Abdominal: soft, non-tender, non-distended, no rebound/guarding, normal bowel sounds present Musculoskeletal: LUE in sling, LLE with limited range of motion, no peripheral edema Skin: no bruising noted, warm and dry, intact, no rashes Neuro: CN II-XII intact, no focal deficits Objective Labs 12/12/24 05:22 12/12/24 05:22 Labs: Laboratory Results - last 24 hr 12/12/24 05:22 WBC 9.0 RBC 4.20 Hgb 12.9 Hct 38.0 MCV 91 MCH 30.7 MCHC 33.9 RDW Std Deviation 43.4 Plt Count 225 D Neut % (Auto) 66 Lymph % (Auto) 18 Rock % (Auto) 9 Eos % (Auto) 6 Baso % (Auto) 1 Neut # (Auto) 5.9 Lymph # (Auto) 1.6 Rock # (Auto) 0.8 Eos # (Auto) 0.6 H Baso # (Auto) 0.1 Immature Gran # (Auto) 0.04 H Absolute Nucleated RBC 0.00 Immature Gran % 0 Nucleated RBC % 0 Sodium 137 Potassium 4.1 Chloride 101 Carbon Dioxide 26.4 Anion Gap 10 BUN 21 Creatinine 1.3 Estim Creat Clear Calc 32.8 L eGFR 45 L BUN/Creatinine Ratio 16 Glucose 94 Calculated Osmolality 276 Calcium 10.0 Quality Measures Quality Measures none Advance care planning discussed with:: patient and child Assessment & Plan Assessment Current Active Medications: Generic Name Dose Route Start Last Admin Trade Name Freq PRN Reason Stop Dose Admin Acetaminophen 650 mg 12/11/24 15:09 Acetaminophen 325 Mg Tablet PO 01/09/25 16:37 Q6H PRN PAIN OR FEVER > 100.4 Amlodipine Besylate 10 mg 12/11/24 09:00 12/12/24 20:37 Amlodipine Besylate 5 Mg Tablet PO 01/10/25 08:59 10 mg HS CLIFF Administration Aspirin 81 mg 12/11/24 09:00 12/12/24 08:34 Aspirin 81 Mg Chew PO 01/10/25 08:59 81 mg DAILY CLIFF Administration Atorvastatin Calcium 40 mg 12/10/24 21:00 12/12/24 20:33 Atorvastatin Calcium 20 Mg Tablet PO 01/09/25 20:59 40 mg HS CLIFF Administration Enoxaparin Sodium 40 mg 12/11/24 09:00 12/12/24 08:34 Enoxaparin Sod Inj 40 Mg/0.4 Ml Syringe SC 12/25/24 08:59 40 mg QDAY CLIFF Administration Morphine Sulfate 2 mg 12/11/24 10:58 Morphine Sulf Inj 10 Mg/Ml Vial IVP 12/15/24 21:27 Q4HR PRN BREAKTHROUGH PAIN Ondansetron HCl 4 mg 12/10/24 16:38 12/11/24 15:15 Ondansetron Inj 2 Mg/Ml Inj 2 Ml IVP 01/09/25 16:37 4 mg Q6H PRN Administration NAUSEA OR VOMITING Protocol Tramadol HCl 50 mg 12/12/24 17:16 05/28/25 20:34 Tramadol Hcl 50 Mg Tablet PO 12/17/24 17:15 50 mg Q6HR PRN Administration PAIN SCALE 4-10(Mod-Sev Plan Aminta Ogden is a 69-year-old female with a past medical history of osteopenia, history of left-sided hip fracture in 2020 status post ORIF, hypertension, hyperlipidemia who is admitted for management of acute left hip fracture. #Acute left superior pubic rami fracture #Acute left wrist fracture #History of severe osteopenia #History of left-sided hip fracture status post ORIF in 2020 Presents with mechanical ground-level fall and denies LOC with CT head and neck negative. CT pelvis showed an acute nondisplaced fracture of the left 2nd and 3rd sacral wings, acute fracture of the left superior inferior pubic rami, hips intact. Wrist x-ray showed acute comminuted fracture of the distal radial metaphysis. ED provider spoke with Dr. Chaudhry regarding case and stated that fractures are nonoperable and can be managed with pain and be discharged to home with home health or SNF. ? Orthopedics consulted, appreciate recommendations ? For hip fractures, can be treated nonoperatively, weightbearing as tolerated; trial of ambulation and will need platform walker given distal radius fracture ? For distal radius fracture, will likely need surgery -> will need platform walker, nonweightbearing, outpatient follow-up ? PT evaluation ? Pain management: ketorolac held and started tramadol, morphine for breakthrough pain #Nausea ? Zofran ? Scopolamine patch x1 #Hypertension ? Amlodipine 10 mg nightly #Hyperlipidemia ? Atorvastatin 40 mg p.o. at bedtime Hospital management: Disposition: anticipate discharge within next 24 hours with home health Diet: regular Lines: PIV DVT prophylaxis: enoxaparin 40 mg SC daily CODE STATUS: full code ----- Plan discussed with attending physician Dr. Octavio Johnston MD PGY-1 Internal Medicine
[2024-12-12] MEDS: MORPHINE SULF INJ 10 MG/ML VIAL 2 MG IVP (23:12)
[2024-12-13] VITALS: BP 127/76; PULSE 77; RESP 16; TEMP 36.1; O2SAT 93
[2024-12-13] MEDS: traMADol HCL 50 MG TABLET PO ×2 (02:38→09:32)
[2024-12-13 04:00] VITALS: BP 113/70; PULSE 64; RESP 16; TEMP 36.6; O2SAT 92
--- NOTE | 2024-12-13 05:45 | PC.NURSE ---
called Dr. Grande regarding patient has not had a bowel movement since 12/09, and patient has no PRNs. New orders received.
[2024-12-13 06:12] LABS: Basophils # (Auto) 0.1 Thou/mm3 (0.0-0.2); Basophils % (Auto) 1 % (0-2.5); Eosinophils # (Auto) 0.6 Thou/mm3 (0.0-0.5); Eosinophils % (Auto) 6 % (0-10); Hematocrit 36.8 % (36.0-46.0); Hemoglobin 12.4 g/dL (12.0-16.0); Immature Granulocytes % (Auto) 0 % (0-0); Immature Granulocytes Auto 0.03 Thou/mm3 (0.00-0.00); Lymphocytes # (Auto) 1.7 Thou/mm3 (1.0-4.8); Lymphocytes % (Auto) 20 % (10-50); Mean Corpuscular HGB Conc 33.7 g/dl (31.0-37.0); Mean Corpuscular Hemoglobin 30.1 pg (25.0-35.0); Mean Corpuscular Volume 89 fL (80-100); Monocytes # (Auto) 0.8 Thou/mm3 (0.0-0.8); Monocytes % (Auto) 10 % (0-12); Neutrophils # (Auto) 5.4 Thou/mm3 (1.8-7.7); Neutrophils % (Auto) 63 % (37-80); Nucleated Red Blood Cell % 0 /100 WBC (0); Platelet Count 224 Thou/mm3 (140-440); RDW Standard Deviation 44.2 fL (36.4-46.3); Red Blood Count 4.12 Miln/mm3 (4.00-5.20); White Blood Count 8.6 Thou/mm3 (3.6-11.0)
[2024-12-13 06:20] LABS: Anion Gap 10 (7-16); BUN/Creatinine Ratio 23 Ratio (12-20); Blood Urea Nitrogen 27 mg/dL (9-23); Calcium 8.5 mg/dL (8.3-10.6); Carbon Dioxide 25.9 mMol/L (20.0-31.0); Chloride 106 mMol/L (98-107); Creatinine (Component) 1.2 mg/dL (0.6-1.3); Estimated Creatinine Clearance 35.5 mL/min (>60); Glucose 102 mg/dL (74-106); Osmolality,Calculated 288 (275-295); Potassium 4.1 mMol/L (3.4-5.1); Sodium 142 mMol/L (136-145); eGFR 49 See Note
[2024-12-13] MEDS: SENNA TABLET 1 TAB PO ×2 (06:49→09:32)
[2024-12-13 08:00] VITALS: BP 99/65; PULSE 78; RESP 16; TEMP 36.6; O2SAT 95
[2024-12-13] MEDS: ASPIRIN 81 MG CHEW PO (09:31)
[2024-12-13] MEDS: ENOXAPARIN SOD INJ 40 MG/0.4 ML SYRINGE SC (09:32)
[2024-12-13] MEDS: RINGERS LACTATED 1000 ML 500 ML 999 ML IV (09:34)
--- NOTE | 2024-12-13 11:11 | ESDS_ITS ---
<Statement entered by Adan Cunningham MD - 12/17/24 14:42> I reviewed above note and agree with findings and plans. I have also personally examined the patient with medicine team and went over assessment and plan with medical team including internal communications specialist and resident physician. Planned Discharge Date 12/13/24 DS: Providers Provider Date of admission: 12/10/24 16:38 Primary care physician: Gibran Oliveira MD Admitting Provider: Trip Owens MD Attending Provider on Admission: Adan Cunningham MD Consults: 12/10/24 16:45 Referral Physical Therapy Routine Comment: Left hip fracture, left wrist fracture Physician Instructions: 12/11/24 09:11 Consult to Orthopedic Routine Comment: Consulting Provider: Juan Walsh Instructions: Acute nondisplaced fracture of left 2nd and 3rd sacral wings, acute fracture of left superior and inferior pubic rami, hips intact Acute comminuted fracture of the distal radial metaphysis Attending Provider on DC: Thomas Johnston MD Discharging Provider: Thomas Johnston MD DS: Diagnosis Problem List Completed Was Problem List Reviewed/Reconciled?: Yes Hospital Course Hospital Course Hospital course: Aminta Ogden is a 69-year-old female with a past medical history of osteopenia, history of left-sided hip fracture in 2020 status post ORIF, hypertension, hyperlipidemia who presents on 12/10 after mechanical ground-level fall. 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 Afterwards she experienced immediate pain but did not have her cell phone and had to walk a certain distance and even climb over a fence in order to get to her car and phone to call for help. Upon arrival to the ED, CT cervical spine negative, CT head negative, CXR negative. However, CT pelvis showed an acute nondisplaced fracture of the left 2nd and 3rd sacral wings, acute fracture of the left superior inferior pubic rami, hips intact. Wrist x-ray showed acute comminuted fracture of the distal radial metaphysis. ED provider spoke with Dr. Chaudhry regarding case and stated that fractures are nonoperable and can be managed with pain and be discharged to home with home health or SNF. Otherwise, vital signs stable. Labs showed leukocytosis of 19.4 (likely reactive secondary to fracture), normal coag panel, and mildly elevated calcium at 10.3. Patient received 1 L LR bolus, 2 mg IV morphine x 1, 4 mg IV morphine x 1, and 1 tablet of Percocet. Pain was initially managed with dialudid and morphine but patient stated she tends to feel ill with those medications and was transitioned to ketorolac as she has had that before and provided pain relief. Orthopedic surgeon, Dr. Walsh, was consulted following morning as there was no coverage pervious night and stated that for the pubic rami and sacral fractures, can be treated nonoperatively, weightbearing as tolerated; trial of ambulation and will need platform walker given distal radius fracture. For distal radius fracture, will likely need surgery, will need platform walker, nonweightbearing, outpatient follow-up for which patient has an appointment with Dr. Araujo in [place] for. Otherwise, given that patient's vitals and labs have remained stable, will plan for discharge on [place] 7.5 to help with pain upon discharge as Ketorolac roasterman is not advisable and patient developed a rash with Percocet. Will plan to follow-up with her outpatient at [facility] next Tuesday. Diagnoses during admission: #Acute left superior pubic rami fracture #Acute left wrist fracture #History of severe osteopenia #History of left-sided hip fracture status post ORIF in 2019 #Nausea #Hypertension #Hyperlipidemia Discharge instructions: ? Continue taking all home medications as prescribed ? Take [place] 7.5 and Tylenol as needed for pain ? Follow-up with PCP within 1-2 weeks of discharge ? Follow-up with Dr. Araujo in [place] for your wrist fracture ? Return to ED if symptoms worsen or recur ----- Plan discussed with attending physician Dr. Octavio Johnston MD PGY-1 Internal Medicine Time Spent with Patient Time attestation: Total time spent providing and/or coordinating discharge services: Time spent: Greater than 30 minutes Home Health Home Health Referral Orders: 12/11/24 10:55 Home Health Referral Routine Reason For Exam: PT Home-Bound The patient must either because of illness or injury, need the aid of supportive devices such as crutches, canes, wheelchairs, and walkers; the use of special transportation; or the assistance of another person in order to leave their place of residence; OR have a condition such that leaving his or her home is medically contraindicated. In addition, the patient also meets the following criteria: patient is normally unable to leave the home and leaving home requires considerable taxing effort. Addendum to Home Health Certification Practitioner's Certification: I certify that the patient has been under my care in the hospital and the care of attending physician (see below). We had a uqlx-cw-gvmh encounter on (see date below). My clinical findings indicate that the patient is home bound per the above criteria and the Home Health Services noted in these orders are medically necessary. The primary reason for the cdvi-rm-qowz encounter is related to the fact that the patient requires home health services. Date Certifying Feox-oe-Mdrg Physician Encounter: 12/10/24 Physician's Name who will Assume Oversight for Services: Gibran Oliveira Physician's Phone No.who will Assume Oversight for Service: SUPERVISOR [employer]INTENANCE - Community Resources: No PT to Evaluate: Yes PT to evaluate and provide a treatmnet plan to increase patient's mobility and strength. Wound Care: No IV Therapy: No RN Safety Evaluation: Yes RN to evaluate and create a plan of care that will produce positive outcomes. Palliative Treatment: No Palliative treatment and evaluate the need for hospice. Home Health Aide - Personal Care: No Home Health Aide to assist with any ADL's. 12/12/24 09:55 Home Health Referral Routine Reason For Exam: PT Home-Bound The patient must either because of illness or injury, need the aid of supportive devices such as crutches, canes, wheelchairs, and walkers; the use of special transportation; or the assistance of another person in order to leave their place of residence; OR have a condition such that leaving his or her home is medically contraindicated. In addition, the patient also meets the following criteria: patient is normally unable to leave the home and leaving home requires considerable taxing effort. Addendum to Home Health Certification Practitioner's Certification: I certify that the patient has been under my care in the hospital and the care of attending physician (see below). We had a fimf-ih-npxy encounter on (see date below). My clinical findings indicate that the patient is home bound per the above criteria and the Home Health Services noted in these orders are medically necessary. The primary reason for the xgvk-xb-gyjr encounter is related to the fact that the patient requires home health services. Date Certifying Jfbr-xj-Lloc Physician Encounter: 12/10/24 Physician's Name who will Assume Oversight for Services: Gibran Oliveira Physician's Phone No.who will Assume Oversight for Service: SUPERVISOR [employer]INTENANCE - Community Resources: No PT to Evaluate: Yes PT to evaluate and provide a treatmnet plan to increase patient's mobility and strength. Wound Care: No IV Therapy: No RN Safety Evaluation: Yes RN to evaluate and create a plan of care that will produce positive outcomes. Palliative Treatment: No Palliative treatment and evaluate the need for hospice. Home Health Aide - Personal Care: No Home Health Aide to assist with any ADL's. Exam Vital Signs Temp Pulse Resp BP Pulse Ox O2 Del Method 97.9 F 78 16 99/65 95 Room Air 12/13/24 08:00 12/13/24 08:00 12/13/24 08:00 12/13/24 08:00 12/13/24 08:00 12/13/24 08:00 Narrative Exam General: AOx3, moderate discomfort from pain, able to speak full sentences HEENT: NC/AT, mucous membranes moist, bilateral sclera anicteric Cardiovascular: regular rate and rhythm, S1/S2 present, no murmurs appreciated Pulmonary: clear to auscultation bilaterally, no rales/rhonchi/wheezes Abdominal: soft, non-tender, non-distended, no rebound/guarding, normal bowel sounds present Musculoskeletal: LUE in sling, LLE with limited range of motion, no peripheral edema Skin: no bruising noted, warm and dry, intact, no rashes Neuro: CN II-XII intact, no focal deficits Discharge Plan Plan Patient Disposition: Home w/HOME HEALTH Patient condition on transfer: Stable Care Plan Goals: ? Continue taking all home medications as prescribed ? Take [place] 7.5 and Tylenol as needed for pain ? Follow-up with PCP within 1-2 weeks of discharge ? Follow-up with Dr. Araujo in [place] for your wrist fracture ? Return to ED if symptoms worsen or recur Prescriptions/Referrals Prescriptions/Med Rec: New acetaminophen 500 mg capsule 500 mg PO Q6H PRN (Reason: pain) Qty: 10 0RF hydrocodone-acetaminophen 7.5-325 mg tablet 1 tab PO Q6H MDD 4 PRN (Reason: pain) Qty: 20 0RF Continued amlodipine 10 mg Tablet 10 mg PO HS atorvastatin 40 mg tablet 40 mg PO .COMPLEX Patient Comments: TAKE ONE TABLET BY MOUTH AT BEDTIME FOR CHOLESTEROL Rx Instructions: 40 mg orally; aspirin 81 mg tablet,chewable 81 mg PO DAILY Patient Comments: CHEW ONE TABLET BY MOUTH EVERY DAY FOR THE HEART Referrals: Gibran Oliveira MD [Primary Care Provider] - Patient/Caregiver Discharge Instructions Discharge Activity: as per physical therapy and activity as tolerated Education Materials: Treating Wrist Fractures, ED Pelvic Fracture Print Language: Belarusian Stand Alone Forms: Radha Award Info., Patient Portal Info Letter Discharge Order Discharge Orders: Discharge (Routine); Ordered 12/13/24 Ordered By: Thomas Johnston Quality Discharge Quality Measures VTE prophylaxis
[2024-12-13 11:43] VITALS: BP 109/73; PULSE 69; RESP 16; TEMP 36.6; O2SAT 95
[2024-12-13] MEDS: oxyCODONE/APAP 5/325 TABLET 1 TAB PO (12:16)
--- NOTE | 2024-12-13 14:34 | PC.SS ---
SS spoke to pt at bs to discuss DC, pt states she needs a BSC and walker. SS informed pt SS spoke to Claudia at [facility] who stated family picked up the walker yesterday afternoon. SS informed pt we can submit for 3in1 BSC but that would not be a reason for her to stay in hospital, pt expressed understanding. Pt requeted SS to cqll her daughter to arrange transport
--- NOTE | 2024-12-13 15:20 | PC.SS ---
SS spoke to dtr Valeria who requested transport for pt being she can not transfer to her truck. SS to set up transport through [facility].
[2024-12-13 15:55] VITALS: BP 115/74; PULSE 89; RESP 16; TEMP 36.6; O2SAT 95
--- NOTE | 2024-12-13 16:09 | PC.SS ---
SS attempted to set up gurney transport through [facility], however, the secondary insurance of [facility] was not agreeing to auth transport and referred back to primary, [facility]. [employer] member services transferred to provider services and they were unable to assist in timely manner. JHONNY submitted and set up with [facility] for a olive picker time of 6:30p.m. SS notified floor nurse.
[2024-12-13] MEDS: DiphenhydrAMINE 25 MG CAPSULE PO (17:13)
[2024-12-13] MEDS: MORPHINE SULF INJ 10 MG/ML VIAL 2 MG IVP (19:17)
--- NOTE | 2024-12-14 19:05 | PC.CM ---
Patient daughter called me stating she wanted to know when [facility] was going to be coming out. I let her know I sent information out and I will need to see who accepts patients insurance.
--- NOTE | 2024-12-15 08:27 | PC.CC ---
Addendum entered by Carlos Diaz RN 12/15/24 08:32: Referral was sent to all HH agencies. [facility]. Original Note: Per Patria's notes, pt daughter requested [facility]. Patient insurance is [facility] [employer]. We have to check with [facility] medical [facility] on Tuesday if it is OK to send it to [facility].
--- NOTE | 2024-12-15 08:33 | PC.CC ---
Per Allison's notes, pt daughter requested [facility]. Patient insurance is [facility] [employer]. We have to check with [facility] medical group on Tuesday if it is OK to send it to [facility] instead of [facility]. Referral was sent to all HH agencies. [facility] has not responded yet.
--- NOTE | 2024-12-17 10:32 | PC.CC ---
[facility] accepted and booked, waiting for SOC [facility] declined, stated to send ref to [facility]. Referral sent to [facility]
== END 2024-12-13 19:35 | disposition home health service (06) | DRG 536 ==
LOC: SERX 16:23 → SERHOLD 12-11 06:06 → S3SX 12-11 06:06
PROVIDERS: Registered Nurse General Practice; Admitting Provider Student in an Organized Health Care Education/Training Program; Emergency Provider Family Medicine; PCP Family Medicine; Visit Provider Internal Medicine
DX: S32.592A Other specified fracture of left pubis, initial encounter for closed fracture (principal); S52.502A Unspecified fracture of the lower end of left radius, initial encounter for closed fracture; S32.19XA Other fracture of sacrum, initial encounter for closed fracture; S52.352A Displaced comminuted fracture of shaft of radius, left arm, initial encounter for closed fracture; Z87.81 Personal history of (healed) traumatic fracture; W18.30XA Fall on same level, unspecified, initial encounter; I10 Essential (primary) hypertension; E78.5 Hyperlipidemia, unspecified; D72.829 Elevated white blood cell count, unspecified; Z87.891 Personal history of nicotine dependence; Z79.899 Other long term (current) drug therapy; Z88.0 Allergy status to penicillin; Z88.2 Allergy status to sulfonamides; Z88.8 Allergy status to other drugs, medicaments and biological substances; R11.0 Nausea; M85.80 Other specified disorders of bone density and structure, unspecified site
CPT/HCPCS: 36415; 70450; 71045; 72125; 72192; 73100; 73502; 80048; 80053; 80061; 81001; 83735; 84100; 84443; 85025; 85610; 85730; 93005; 96361; 96365; 96375; 96376; 99285; J0689; J1650; J1885; J2270; J2405; J7120; A9270

== ENCOUNTER 2024-12-16 16:00 | Emergency (ER) | payer MEDICARE, MEDICAID, SELFPAY ==
[2024-12-16 16:02] VITALS: PULSE 82; RESP 18; O2SAT 99; BMI 26.4
[2024-12-16 16:05] VITALS: BP 113/66; PULSE 68; RESP 18; TEMP 37; O2SAT 95
[2024-12-16] MEDS: DIAZEPAM 5 MG TABLET PO (17:59)
[2024-12-16] MEDS: HYDROcodone/APAP 5/325 TABLET 2 TAB PO (17:59)
[2024-12-16] MEDS: KETOROLAC INJ 30 MG/ML VIAL 15 MG IVP (18:00)
[2024-12-16 18:07] VITALS: BP 128/74; PULSE 69; RESP 18; TEMP 36.6; O2SAT 95
--- NOTE | 2024-12-16 18:13 | PD.EDHIP ---
Lower Extremity Injury RME/HPI General Chief Complaint: Extremity Injury, Upper Stated Complaint: LEFT HIP PAIN Time Seen by Provider: 12/16/24 17:20 Arrival date/time: 12/16/24 16:00 RME / HPI RME / HPI Narrative: 69 year old female with a history of left-sided hip fracture in 2019, s/p ORIF, osteopenia, hypertension, and hyperlipidemia, presents to the ED BIBA from home for evaluation of worsening left hip pain. She was diagnosed on 12/10/2024 with an acute left superior pubic ramus fracture and an acute left wrist fracture following a fall. Since the fall, she has had ongoing pain, but reports a significant increase in severity today, stating it was so intense she almost passed out twice. Pain has not been managed with [place] 7.5 mg at home. She reports that during her recent hospital admission, pain was better controlled with Toradol and Morphine, and she is now requesting stronger pain control for home use. Patient was advised during recent admission to be discharged to a rehabilitation facility but declined, preferring to complete physical therapy at home. She was reportedly scheduled to begin PT on Tuesday but states no one arrived. Denies any new falls or injuries since the initial event. Related Data Home Medications ?Medication ?Instructions ?Recorded ?Confirmed amlodipine 10 mg tablet 10 mg PO HS 04/07/20 12/10/24 aspirin 81 mg chewable tablet 81 mg PO DAILY 12/10/24 12/10/24 atorvastatin 40 mg tablet 40 mg PO .COMPLEX 12/10/24 12/10/24 Previous Rx's ?Medication ?Instructions ?Recorded acetaminophen 500 mg capsule 500 mg PO Q6H PRN pain #10 caps 12/12/24 hydrocodone 7.5 mg-acetaminophen 1 tab PO Q6H PRN pain #20 tabs 12/13/24 325 mg tablet ketorolac 10 mg tablet 10 mg PO Q8H PRN pain 10 days #30 12/16/24 tabs Allergies Allergy/AdvReac Type Severity Reaction Status Date / Time Penicillins Allergy Severe Hives Verified 12/16/24 16:04 sulfamethoxazole Allergy Severe Hives Verified 12/16/24 16:04 trimethoprim Allergy Severe Hives Verified 12/16/24 16:04 Review of Systems Review of Systems Narrative Review of Systems: Gen: No fever, no chills, no weight loss EYES: No discharge, no visual changes, no pain HEENT: No ear pain, no congestion, no sore throat PULM: no shortness of breath, no cough, no congestion CV: No chest pain, no dyspnea on exertion, no palpitations, no chest tightness GI: No nausea, no vomiting, no diarrhea, no pain, no constipation : No frequency, no urgency,? no dysuria Musc/skel: +left hip pain, no back pain Skin: No rash, no ecchymosis, no lesions Neuro: No weakness, no headache Past Medical History Past Medical History NEUROLOGIC: Negative Seizures CARDIAC: Positive Cardiac Disorders and Hypertension; Negative Congestive Heart Failure RESPIRATORY: Negative Chronic Obstructive Pulmonary Disease (COPD) GENITOURINARY: Negative Renal Disease REPRODUCTIVE: Negative Breast Cancer ENDOCRINE: Negative Endocrine Disorders, Diabetes Mellitus Type 1 or Diabetes Mellitus Type 2 OTHER HISTORY: Positive Anesthesia Reactions; Negative Autoimmune Disease, Blood Transfusions, Blood Transfusion Reaction, MRSA, Clostridium Difficile, Cancer or Breast Cancer Family History FAMILY HISTORY: Negative Family Cardiac Disorders Surgical History SURGICAL: Positive Hip Sx (LEFT 2019) Social History SMOKING STATUS: Never smoker ED Exam Narrative Physical exam: GENERAL APPEARANCE: AxOx4, no obvious distress, nontoxic appearing HEENT: NC, AT. MMM. EOMI, clear conjunctiva, oropharynx clear. NECK: Supple without lymphadenopathy. No stiffness or restricted ROM. HEART: Normal rate and regular rhythm, normal S1/S1, no m/r/g LUNGS: CTAB, moving air well. No crackles or wheezes are heard. ABDOMEN: Soft, nontender, nondistended with good bowel sounds heard. BACK: No midline C/T/L spine pain or deformity, No CVAT, no obvious deformity. EXTREMITIES: Without cyanosis, clubbing or edema. MUSCULOSKELETAL: Modified sugar tong on the left wrist with old ecchymosis to the wrist and hand. left hip TTP and has FROM, limited flexion secondary to pain. NEUROLOGICAL: Grossly nonfocal. Alert and oriented, moving all 4 extremities. CN not formally tested but appear grossly intact. Skin: Warm and dry without any rash. Course Quality Measures none Orders Category Date Time Status Diazepam [Valium] Med 12/16/24 17:21 Discontinued 5 mg PO X1 ONE HYDROcodone*/APAP 5/325 [[place] 5/325] Med 12/16/24 17:21 Discontinued 2 tab PO X1 ONE Ketorolac Inj [Toradol Inj] Med 12/16/24 17:21 Discontinued 15 mg IVP X1 ONE Reevaluation(s) Reevaluation #1: Patient reports feeling better with the Toradol and [place]. Will DC patient home with a prescription for Toradol. Time: 18:16 Vital Signs Vital signs: Vital Signs Temperature 98.6 F 12/16/24 16:05 Pulse Rate 68 12/16/24 16:05 Respiratory Rate 18 12/16/24 16:05 Blood Pressure 113/66 12/16/24 16:05 Pulse Oximetry (%) 95 12/16/24 16:05 Oxygen Delivery Method Room Air 12/16/24 16:05 Pulse ox is 95% on room air which is adequate. Extremity Injury, Lower MDM Narrative MDM Narrative:: Ashley Noel am scribing for and in the presence of Dr. Bhatti. Patient data External records reviewed:: [facility] previous records (I reviewed admission 12/10 through 12/13/2024 ) and EMS form Clinical information provided by:: patient and EMS Social determinants that could affect healthcare access:: none Patient has the following chronic illnesses:: left-sided hip fracture in 2019, s/p ORIF, osteopenia, hypertension, and hyperlipidemia How is presenting disease/condition affected by chronic disease/condition?: exacerbated by Evaluation data The following diagnostics were reviewed and interpreted by me:: other (specify) (NO diagnostics ordered ) Lab and/or radiology exams considered but not ordered:: None Interpretation Summary: N/A Medications / Prescriptions Medications or Prescriptions considered but not ordered:: None Medication administrations:: Medication Administration History Discontinued Medications Hydrocodone Bitart/Acetaminophen (Hydrocodone/Apap 5/325 Tablet) 2 tab PO X1 ONE Stop: 12/16/24 17:22 Last Admin: 12/16/24 17:59 Dose: 2 tab Documented By: RD Diazepam (Diazepam 5 Mg Tablet) 5 mg PO X1 ONE Stop: 12/16/24 17:22 Last Admin: 12/16/24 17:59 Dose: 5 mg Documented By: RD Ketorolac Tromethamine (Ketorolac Inj 30 Mg/Ml Vial) 15 mg IVP X1 ONE Stop: 12/16/24 17:22 Last Admin: 12/16/24 18:00 Dose: 15 mg Documented By: STEVO See above Consultations Consultation(s) initiated? (list below): No Diagnosis Most likely diagnosis given after review of the tests above:: Closed pelvic fracture closed fracture of superior ramus of left pubis closed fracture of inferior pubic ramus Admission Indicated Admission indicated?: not indicated Admission Request Was there a request for admission?: No Disposition Plan Disposition Plan: Discharge Discharge Attestation Discharge Attestation: The patient and all family members were given an opportunity to ask questions and understood the discharge instructions. Discharge instructions specifically effects, indications for sooner follow up or return to the emergency department, and the expected course of current diagnosis. Patient condition: Stable Discharge Plan Plan Patient Disposition: HOME (Self Care) Prescriptions/Referrals Prescriptions/Med Rec: New ketorolac 10 mg tablet 10 mg PO Q8H PRN (Reason: pain) 10 Days Qty: 30 0RF No Action amlodipine 10 mg Tablet 10 mg PO HS atorvastatin 40 mg tablet 40 mg PO .COMPLEX Patient Comments: TAKE ONE TABLET BY MOUTH AT BEDTIME FOR CHOLESTEROL Rx Instructions: 40 mg orally; aspirin 81 mg tablet,chewable 81 mg PO DAILY Patient Comments: CHEW ONE TABLET BY MOUTH EVERY DAY FOR THE HEART acetaminophen 500 mg capsule 500 mg PO Q6H PRN (Reason: pain) Qty: 10 0RF hydrocodone-acetaminophen 7.5-325 mg tablet 1 tab PO Q6H MDD 4 PRN (Reason: pain) Qty: 20 0RF Referrals: No Primary/Family,Physician [Primary Care Provider] - In 1 week Problem List Clinical Impression: Closed sacral fracture, Closed fracture of superior ramus of left pubis, Closed fracture of inferior pubic ramus Patient/Caregiver Discharge Instructions Education Materials: ED Pelvic Fracture Additional Instructions: Follow-up your primary doctor in 2-3 days for recheck. Print Language: Danish Stand Alone Forms: [employer] Info., Patient Portal Info Letter
--- NOTE | 2024-12-16 18:51 | PC.NURSE ---
PATIENT BROUGHT IN BY [facility] [place] [place] FOR MEDICAL CLEARANCE BUT TURNED PATIENT OVER DUE TO HIGH HEART RATE. PATIENT SEEN IN ER NUMEROUS TIMES BEFORE FOR METHAMPHETAMINE USE AND AMS DUE TO DRUG PSYCHOSIS. PATIENT CURRENTLY UNABLE TO COMMUNICATE TO ER PROVIDER OR STAFF. AWAITING FURTHER ORDERS.
[2024-12-16 20:50] VITALS: BP 117/59; PULSE 62; RESP 17; TEMP 36.6; O2SAT 95
--- NOTE | 2024-12-20 08:34 | PC.SS ---
Edda Koo sister in law of patient called in to state she was told that the care was not good and that we did not do anything for the patient. She stated she does not have all of the information but will call back. I told her the number to Medical Records as she said patient will review er records. She stated that she is receiving information second hand from patient and family.
== END 2024-12-16 22:03 | disposition home or self-care (01) ==
PROVIDERS: Emergency Provider Emergency Medicine
DX: S32.10XA Unspecified fracture of sacrum, initial encounter for closed fracture (principal); S32.512A Fracture of superior rim of left pubis, initial encounter for closed fracture; S32.592A Other specified fracture of left pubis, initial encounter for closed fracture; W19.XXXA Unspecified fall, initial encounter
CPT/HCPCS: 96374; 99284; J1885; A9270

== ENCOUNTER → 2024-12-25 | Outpatient (CLI) | payer OTHER, MEDICAID, SELFPAY ==
[2024-12-25 16:15] LABS: Collection Type, Urine Clean Catch
[2024-12-25 16:32] LABS: Basophils # (Auto) 0.2 Thou/mm3 (0.0-0.2); Basophils % (Auto) 2 % (0-2.5); Eosinophils # (Auto) 0.9 Thou/mm3 (0.0-0.5); Eosinophils % (Auto) 7 % (0-10); Hematocrit 36.1 % (36.0-46.0); Hemoglobin 11.9 g/dL (12.0-16.0); Immature Granulocytes % (Auto) 0 % (0-0); Immature Granulocytes Auto 0.05 Thou/mm3 (0.00-0.00); Lymphocytes % (Auto) 25 % (10-50); Mean Corpuscular Hemoglobin 30.2 pg (25.0-35.0); Mean Corpuscular Volume 92 fL (80-100); Monocytes # (Auto) 0.7 Thou/mm3 (0.0-0.8); Monocytes % (Auto) 6 % (0-12); Neutrophils % (Auto) 60 % (37-80); Nucleated Red Blood Cell % 0 /100 WBC (0); Platelet Count 487 Thou/mm3 (140-440); RDW Standard Deviation 43.8 fL (36.4-46.3); Red Blood Count 3.94 Miln/mm3 (4.00-5.20); White Blood Count 11.8 Thou/mm3 (3.6-11.0)
[2024-12-25 16:39] LABS: INR 0.9 (0.9-1.3); Partial Thromboplastin Time 28.7 Seconds (22.0-36.0); Prothrombin Time 10.4 Seconds (9.0-12.2)
[2024-12-25 16:40] LABS: Bilirubin,Urine Negative (Negative); Blood,Urine Negative (Negative); Clarity,Urine Clear (Clear/Hazy); Color,Urine Yellow (Lt Yel-Yel); Culture Indicated,Urine Not Indicated; Glucose, Urine Negative (Negative); Ketones,Urine Negative (Negative); Leukocyte Esterase,Urine Positive (Negative); Nitrite,Urine Negative (Negative); Protein,Urine Negative (Neg - Trace); RBC,Urine 1 /hpf (0-3); Specific Gravity,Urine 1.026 (1.001-1.035); Squamous Epithelial Cell,Urine 1 /hpf (0-5); Urobilinogen,Urine Negative mg/dL (0.0-1.0); WBC,Urine 3 /hpf (0-5)
[2024-12-25 16:45] LABS: Glucose Estimated Average 105 mg/dL (80-131); Hemoglobin A1C 5.3 % Hgb (4.8-6.0)
[2024-12-25 17:27] LABS: Hepatitis C Antibody Reactive (Non React)
[2024-12-31 07:08] LABS: HIV Ag/Ab, 4th Gen NON-REACTIVE
== END | disposition home or self-care (01) ==
PROVIDERS: PCP Nurse Practitioner Family; Referring Provider Orthopaedic Surgery; Visit Provider Orthopaedic Surgery
DX: Z01.818 Encounter for other preprocedural examination (principal); S52.502A Unspecified fracture of the lower end of left radius, initial encounter for closed fracture; X58.XXXA Exposure to other specified factors, initial encounter
CPT/HCPCS: 36415; 81001; 83036; 85025; 85610; 85730; 86803; 87389

== ENCOUNTER → 2025-01-09 | Outpatient (CLI) | payer MEDICARE, SELFPAY ==
--- NOTE | 2025-01-09 | XR_ITS ---
Examination: Forearm, left, 2 views. Technique: Forearm, AP, lateral 2 views Date and time of exam: January 09, 2025 1206 hours Comparison December 10, 2024 INDICATIONS: Acute comminuted fractures distal radial metaphysis December 10, 2024, postop reduction internal fixation FINDINGS: Operative reduction internal fixation fractures distal radial metaphyseal region with significant partial healing and satisfactory alignment Ulnar styloid tip fracture IMPRESSION: Postop reduction internal fixation fractures distal radius with significant partial healing and satisfactory alignment
== END | disposition home or self-care (01) ==
PROVIDERS: PCP Family Medicine; Referring Provider Orthopaedic Surgery Adult Reconstructive Orthopaedic Surgery; Visit Provider Orthopaedic Surgery Adult Reconstructive Orthopaedic Surgery
DX: S62.109A Fracture of unspecified carpal bone, unspecified wrist, initial encounter for closed fracture (principal); X58.XXXA Exposure to other specified factors, initial encounter
CPT/HCPCS: 73090

== ENCOUNTER 2025-01-15 14:08 | Outpatient (AMB) | payer MEDICARE, MEDICAID, SELFPAY ==
[2025-01-15 14:21] VITALS: BP 139/87; PULSE 74; RESP 18; TEMP 36.5; O2SAT 95; BMI 24.7
--- NOTE | 2025-01-15 14:21 | ORTHONT_ITS ---
Vital signs 01/15/25 14:21 Height 1.52 m Height Method Stated Weight 57.153 kg Weight Measurement Method Standing Scale BMI 24.7 BP 139/87 H Blood Pressure Source Automatic Cuff Blood Pressure Location Left Upper Arm Position Sitting Respiration 18 Pulse 74 Pulse Source Monitor Temp 97.7 F Temp Source Temporal Artery Scan Pulse Oximetry (%) 95 Oxygen Delivery Method Room Air Med/Allergies Allergies & Medications Allergies Penicillins Allergy (Severe, Verified 01/15/25 14:22) Hives sulfamethoxazole Allergy (Severe, Verified 01/15/25 14:22) Hives trimethoprim Allergy (Severe, Verified 01/15/25 14:22) Hives Medication Reconciliation amlodipine 10 mg tablet 10 mg PO HS 04/07/20 [History Confirmed 01/15/25] aspirin 81 mg chewable tablet 81 mg PO DAILY 12/10/24 [History Confirmed 0 01/15/25] atorvastatin 40 mg tablet 40 mg PO .COMPLEX 12/10/24 [History Confirmed 01/15/25] acetaminophen 500 mg capsule 500 mg PO Q6H PRN pain #10 caps 12/12/24 [Rx Confirmed 01/15/25] hydrocodone 7.5 mg-acetaminophen 325 mg tablet 1 tab PO Q6H PRN pain #20 tabs 12/13/24 [Rx Confirmed 01/15/25] Exam Exam Patient is in no acute distress and is cooperative with the examination today. Breathing is nonlabored. In no respiratory distress. Patient has no paraspinal tenderness. Spinal deformity cannot be appreciated. The gait of the patient is nonantalgic Bilateral extremities were evaluated and demonstrates sensation intact to light touch. Palpable pedal pulses are present. No significant edema is present. Bilateral knees were examined and the patient has full strength and range of motion.. The right hip was examined. Patient was able to flex to 90 degrees, adduct to 30 degrees, abduct to 40 degrees, internally rotate to 20 degrees, and externally rotate to 20 degrees. Patient has a negative logroll. Stinchfield is negative. The patient is nontender diffusely to touch. The left hip was examined. Patient was able to flex to 90 degrees, adduct to 30 degrees, abduct to 40 degrees, internally rotate to 20 degrees, and externally rotate to 20 degrees. Patient has a negative logroll. The stinchfield is negative. Left wrist incision is clean dry and intact Assessment and Plan Problem List (1) Closed sacral fracture: Status: Acute Plan: Patient is a pleasant 69-year-old female with a left pubic ramus fracture as well as a sacral fracture. She is now doing well. She is walking with a walker. She had her distal radius fixed in [place] and is also doing well from this. Plan We will see her back for routine follow-up Advanced Care Planning Discussion Advance care planning discussed with:: patient Office Procedures GNS Level of Care Nursing/Assessment Patient Status: Initial/New Patient Nursing Assessment/Reassesment: Medication Reconciliation, Update PMH in EMR and Vital Signs Coordination of Care: Complex Care and Chronic Disease 1-5, Education Complex Pt/Fam, Consent,records obtained, informed consent, 1 Ins Authorization, Lab and Imaging orders, Results/Orders obtained and Staff clarify orders New Patient Charge New Patient Point Assignment: 1124 New Patient Point Charge: [employer] Level 4 ([id number]) MA Intake Visit Data Collection New Patient or Established: New Patient (never been to [facility]) Reason for Visit:: BL HIP PAIN Seen by Clinical Staff ONLY (RN/MA): No PCP or OBGYN visit in last 3 months: Yes Hx Now: No Do You Feel Safe at Home: Yes Authorities Contacted: N/A Questionairres Past Medical History Past Medical History Have you ever been diagnosed with any of the following: Neurological Problems Seizures: No Cardiology Problems Congestive Heart Failure: No Hypertension: Yes Respiratory Problems Chronic Obstructive Pulmonary Disease (COPD): No Smoking: No Smoking Exposure: No Genital/Urinary Problems Renal Disease: No Reproductive Problems Breast Cancer: No Endocrine Problems Diabetes Mellitus Type 1: No Diabetes Mellitus Type 2: No Other Problems Blood Transfusions: No Blood Transfusion Reaction: No Anesthesia Reactions: Yes MRSA: No Clostridium Difficile: No Cancer: No Subjective Visit Visit for: new patient, hip and x-rays Immunization / Flu Flu Vaccine in the Last 12 Months: No Flu Vaccine Exclusion Criteria: No Exclusion Criteria History of Present Illness Chief complaint: Left hip pain Patient is a pleasant 69-year-old female with a pubic ramus fracture on the left. This was treated nonoperatively. She reports she is actually no pain at all. She has more pain on the right side. She is status post a distal radius ORIF and is doing well Pain Pain level (0-10): 6 Pain duration: WITH MOVEMENT Pain location: outside (lateral) and posterior Pain quality: dull Pain timing: increases with activity Associated signs & symptoms: none Ambulatory data Ambulatory device: walker Treatments Improvement with previous injections: No Improvement with PT: No Improvement with NSAIDS: no Review of Systems Review of Systems: All systems negative unless otherwise noted in HPI.
--- NOTE | 2025-01-15 14:31 | XR_ITS ---
Examination:Left hip AP, lateral, AP pelvis 3 views Technique: Hip AP lateral, AP pelvis, 3 views Exam date and time:January 15, 2025 1503 hours Comparison December 10, 2024 INDICATIONS: Right hip pain after falling January 05, 2025. FINDINGS: Severe osteopenia No right hip fracture or dislocation Healing fractures left pelvic rami Healed left hip fracture IMPRESSION: No acute right hip fracture or hip dislocation.
--- NOTE | 2025-01-15 14:35 | XR_ITS ---
Examination: Hand, left 2 views Technique: Hand AP, lateral 2 views Date and time of exam: January 15, 2025 1506 hours INDICATIONS: Patient fell January 05, 2025, postop reduction internal fixation fracture distal radius, acute comminuted fracture distal radius December 10, 2024 FINDINGS: Partial healing comminuted fractures distal radial metaphysis with satisfactory alignment Advanced osteoarthritis first carpometacarpal joint Ununited fracture ulnar styloid tip Bones of the hand intact IMPRESSION: Early healing comminuted fractures distal radial metaphysis with satisfactory alignment
== END 2025-01-15 14:55 | disposition home or self-care (01) ==
PROVIDERS: Supervising Provider Orthopaedic Surgery Adult Reconstructive Orthopaedic Surgery; Visit Provider Orthopaedic Surgery Adult Reconstructive Orthopaedic Surgery
DX: S32.10XD Unspecified fracture of sacrum, subsequent encounter for fracture with routine healing (principal); S32.592D Other specified fracture of left pubis, subsequent encounter for fracture with routine healing; X58.XXXD Exposure to other specified factors, subsequent encounter; I10 Essential (primary) hypertension
CPT/HCPCS: 73120; 73502; 99204; G0463

== ENCOUNTER → 2025-02-22 | Outpatient (CLI) | payer MEDICARE, MEDICAID, SELFPAY ==
--- NOTE | 2025-02-22 13:15 | XR_ITS ---
Examination: Thoracic spine 3 views Technique one AP lateral coned lateral upper dorsal spine 3 views Date and time: March 04, 2025 1324 hours Comparison March 04, 2024 INDICATIONS: Mid back pain beginning 2 weeks ago FINDINGS: Severe osteopenia Lower thoracic dextroscoliosis 14 degrees Kyphosis dorsal spine again noted secondary to chronic osteoporotic compressions multiple mid and lower dorsal vertebral bodies No acute fracture Diffuse moderate to advanced thoracic degenerative disc disease IMPRESSION: Severe osteopenia Again noted chronic multiple osteoporotic compressions dorsal vertebral bodies No definite acute thoracic fracture Diffuse moderate to advanced thoracic degenerative disc disease
--- NOTE | 2025-02-22 13:15 | XR_ITS ---
Examination: Lumbar spine, 5 views Technique: Lumbar spine AP, lateral, coned lateral lower lumbar spine, bilateral obliques 5 views Exam date and time: March 04, 2025 1317 hours Comparison February 22, 2024 INDICATIONS: Mid back pain chronic more severe the last 2 weeks. FINDINGS: Lower lumbar levoscoliosis 14 degrees Severe osteopenia Advanced diffuse facet arthropathy Mild chronic osteoporotic compressions L4, L3, L2 No acute lumbar fracture Mild to moderate diffuse lumbar degenerative disc disease IMPRESSION: Severe osteopenia Mild to moderate diffuse lumbar degenerative disc disease
== END | disposition home or self-care (01) ==
LOC: CDIM 13:04
PROVIDERS: PCP Nurse Practitioner Family; Referring Provider Nurse Practitioner Family; Visit Provider Nurse Practitioner Family
DX: M85.88 Other specified disorders of bone density and structure, other site (principal); M81.0 Age-related osteoporosis without current pathological fracture; M51.34 Other intervertebral disc degeneration, thoracic region; M51.360 Other intervertebral disc degeneration, lumbar region with discogenic back pain only
CPT/HCPCS: 72070; 72110